=== PATIENT | male | born 2005 | race Caucasian/White ===

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

== ENCOUNTER 2025-04-02 22:00 | Observation (INO) | payer OTHER, SELFPAY ==
[2025-04-02 22:01] VITALS: BP 133/72; PULSE 100; RESP 18; TEMP 36.5; O2SAT 98; BMI 30.2
--- NOTE | 2025-04-02 22:14 | EDS_ITS ---
HPI History of Present Illness Chief Complaint: Abd Pain Narrative Narrative: Chief complaint and HPI: Right lower quadrant abdominal pain. 19-year-old male with no significant past medical history presents for evaluation of right lower quadrant abdominal pain. Onset this morning. He associates his some diarrhea. He denies any fever, chills, shortness of breath, chest pain, nausea, vomiting, dysuria. Denies any penile or testicular pain or swelling. No concern for STI. States he has been eating and drinking well. Review of systems: See HPI Medications: As listed on the chart Allergies: As listed on the chart PFSH: Per chart Vital signs: As listed on the chart. Reviewed. Physical exam: Gen: A&O x3, NAD Head: Normocephalic, atraumatic Eyes: No sclera icterus, conjunctiva clear ENT: Moist mucous membranes Neck: Trachea midline, No JVD CV: RRR, no murmurs, no peripheral edema Resp: Lungs CTA BL, no w/r/c GI: Abd soft, non-distended, tender to palpation in the right lower quadrant, no rebound or rigidity Musc: Full ROM, no deformity Skin: Warm, dry Neuro: Alert, oriented, grossly intact, sensation intact Psych: Cooperative, appropriate mood and affect [facility] Medications ?Medication ?Instructions ?Recorded ?Last Taken ?Type NK 04/18/19 Unknown History Allergy/AdvReac Type Severity Reaction Status Date / Time No Known Allergies Allergy Verified 04/02/25 22:03 Surgical History History of myringotomy Social History Smoking Status: Never smoker alcohol intake: never EXAM Physical Exam Const Vital Signs: 04/02/25 22:01 Temperature 97.7 F L Temperature Source Oral Pulse Rate 100 Respiratory Rate 18 Blood Pressure 133/72 H Blood Pressure Mean 92 Pulse Ox 98 Oxygen Delivery Method Room Air MDM MDM MDM Narrative Medical decision making narrative: 19-year-old male with no significant past medical history presents for evaluation of right lower quadrant abdominal pain. Differential diagnosis includes but is not limited to appendicitis, gastroenteritis, UTI, suspect less likely biliary or pancreatic pathology. Patient offered pain medicine but declined. Laboratory workup ordered including CT abdomen pelvis. CBC without leukocytosis or anemia. CMP and lipase pending. UA negative for UTI. CT abdomen pelvis pending. Patient signed out to night physician Dr. Renteria. He will wait for the results and CT abdomen pelvis findings. Impression: 1. Right lower quadrant nominal pain. Lab Data Labs: Laboratory Results - last 24 hr 04/02/25 04/02/25 22:28 22:35 WBC 10.1 RBC 5.04 Hgb 15.8 Hct 46.2 MCV 91.7 MCH 31.3 MCHC 34.2 RDW Std Deviation 42.3 RDW Coeff of Edwin 12.6 Plt Count 270 MPV 10.2 Immature Gran % (Auto) 0.500 Neut % (Auto) 66.4 Lymph % (Auto) 22.6 [place] % (Auto) 8.1 Eos % (Auto) 1.9 Baso % (Auto) 0.5 Absolute Neuts (auto) 6.7 Absolute Lymphs (auto) 2.27 Nucleated RBC % 0 Urine Color Yellow Urine Clarity Clear Urine pH 6.0 Ur Specific [place] 1.020 Urine Protein 15 H Urine Glucose (UA) Normal Urine Ketones Negative Urine Occult Blood Negative Urine Nitrite Negative Urine Bilirubin Negative Urine Urobilinogen 1 H Ur Leukocyte Esterase Negative Discharge Plan Triage Chief Complaint: Abd Pain ED Provider: Jordan Goel Dx/Rx/DC Orders Prescriptions: No Action NK Primary Care Provider: Felipe Monroe Referrals: Felipe Monroe MD [Primary Care Provider] - Print Language: Togolese
--- OUTSIDE RECORDS SUMMARY | 2025-04-02 22:27 | XMS RPT_ITS | CCD ---
Author Organization [facility] Care Team Providers Care Pet Sitter Name Role Phone Dr. Felipe Cortez Primary Care Provider Dr. Felipe Cortez Referring Provider [phone] KEYONNA Wallace Attending Provider Unavailable Primary Care Provider UnavailFelipe Montano Primary Care Unavailable Felipe Cortez Referring Unavailable Maria Elena Cheung Attending Unavailable Maria Elena Cheung Attending Unavailable Felipe Cortez Primary Care Unavailable Felipe Cortez Referring Unavailable BRAULIO DELGADO Attending Unavailable ROSA MOREJON Primary Care Unavailable REFERRED, SELF Referring Unavailable Felipe Kelly Referring Unavailable Felipe Kelly Attending Unavailable Felipe Cortez Primary Care Unavailable Kalyan Renteria Attending Unavailable Felipe Cortez Primary Care Unavailable FELIPE CORTEZ MD Primary Care Physician NENA MORILLO Attending Unavailable FELIPE CORTEZ MD Primary Care Unavailable SANJAY WANG Admitting Unavailable SANJAY WANG Attending Unavailable NENA MORILLO MD Attending Unavailable FELIPE CORTEZ MD Primary Care Unavailable LIONEL CRANE, MERCEDEZ Attending UnavailFELIPE Montano MD Primary Care Unavailable Felipe Cortez MD Primary Care Provider FELIPE CORTEZ Primary Care Unavailable Medications Current Medications Medication Drug Class(es) Dates Sig (Normalized) Sig (Original) 12 hr dextromethorphan hydrobromide 30 mg / guaiFENesin 600 mg extended release oral tablet (1 source) Uncompetitive P-hddlyr-J-aspartat e Receptor Antagonist, Sigma-1 Agonist Start: 10-12-2024 End: 10-19-2024 take 30-600 mg by mouth once as needed dextromethorphan -guaiFENesin (MUCINEX DM) 30-600 MG per extended release tablet Indications: Upper respiratory tract infection, unspecified type Take 1 tablet by mouth 3 times daily as needed for Cough 20 tablet 10/12/2024 10/19/2024 Active Completed/Discontinued Medications Medication Drug Class(es) Dates Sig (Normalized) Sig (Original) albuterol MDI (90 mcg/inh) CFC free inhalation aerosol (1 source) Start: 04-30-2020 End: 06-29-2020 take 2 puff(s) by inhalation every four hours albuterol MDI (90 mcg/inh) CFC free inhalation aerosol 2 puff(s), Inhalation, q4h, ok to fill generic equivalent rescue inhaler, # 1 EA, 1 Refill(s), Pharmacy: [facility], 180.3, cm, 04/30/20 16:03:00 EDT, Height, kg, 04/30/20 16:03:00 EDT, Dosing Weight Start Date: 04/30/20 Stop Date: 06/29/20 Status: Ordered Problems Active Problems Problem Classification Problem Date Documented Da te Episodic/Chronic Asthma (1 source) Asthma 03-28-2019 Chronic Fracture of lower limb (2 sources) Nondisplaced fracture of proximal phalanx of right great toe, subsequent encounter for fracture with routine healing; Translations: [Nondisp fx of prox phalanx of r great toe, 7thD] Onset: 05-08-2022 Episodic Other connective tissue disease (2 sources) Pain in right foot; Translations: [Pain in right foot] Onset: 05-08-2022 Episodic Other upper respiratory disease (1 source) Seasonal allergy 04-30-2020 Chronic Other upper respiratory infections (2 sources) Upper respiratory infection; Translations: [Acute upper respiratory infection, unspecified] Onset: 10-12-2024 10-12-2024 Episodic Skull and face fractures (1 source) Fracture of nasal bones, initial encounter for closed fracture; Translations: [Closed fracture of nasal bone, initial encounter] Onset: 02-22-2024 Episodic Sprains and strains (3 sources) Sprain of ankle; Translations: [Sprain of unspecified ligament of right ankle, initial encounter] 04-18-2019 Episodic Superficial injury; contusion (8 sources) Contusion of foot; Translations: [Contusion of right foot, initial encounter] Episodic Past or Other Problems Problem Classification Problem Date Documented Da te Episodic/Chronic Open wounds of head; neck; and trunk (3 sources) Facial laceration ; Translations: [Laceration without foreign body of other part of head, initial encounter] Onset: 12-18-2022 12-14-2022 Episodic Results Test Name Value Interpretation Reference Range Facility FLU A + B ESUCon 10-12-2024 FLU A ESUC Negative Normal NEGATIVE [facility] Comment on above: Performed By: #### U FLUS #### [address] [address] FLU B ESUC Negative Normal NEGATIVE [facility] Comment on above: Performed By: #### U FLUS #### [address] [address] Rapid influenza A/B antigens on 10-12-2024 FLUAV Ag Ql (Unsp spec) Negative NEGATIVE [facility] FLUBV Ag Ql (Unsp spec) Negative NEGATIVE [facility] Comment on above: Performed at [address] [address] [facility] ANES POSTPROC EVALon 024 ANES POSTPROC EVAL HNO ID: [id number] Author: CHRISTIANO JOSEPH DO Service: Anesthesiology Author Type: Anesthesiologist Type: Anesthesia Postprocedure Evaluation Filed: 02/22/2024 09:18 Note Text: POST ANESTHESIA EVALUATION NOTE : 2005 Procedure Summary Date: 02/22/24 Room / Location: [place] [address] / OR Anesthesia Start: 821 Anesthesia Stop: 850 Procedure: CLSD TX OF NASAL BONE FX W/DO W/STBLN (Nose) Diagnosis: Closed fracture of nasal bone, initial encounter (Closed fracture of nasal bone, initial encounter [S02.2XXA]) Surgeons: Sanjay Wang MD Responsible Provider: Christiano Joseph DO Anesthesia Type: general ASA Status: 1 Anesthesia Type: general Airway Type: LMA Last Vitals Vitals Value Taken Time BP 110/52 02/22/24 0915 Temp 36.8 ?C (98.3 ?F) 02/22/24 0849 Pulse 56 02/22/24 0916 Resp 20 02/22/24 0900 SpO2 99 % 02/22/24 0916 Vitals shown include unfiled device data. Post Anesthesia Patient Status Patient Evaluation: PACU. PACU/ICU Patient Condition: stable. Anticipated Disposition: phase 2 then home. Neurological Status: aware and responsive. Pulmonary Status: breathing comfortably on room air Airway Control: returned to baseline unsupported. Cardiovascular Status: stable. Pain Management: clinically adequate Postoperative Hydration: acceptable. Intraoperative Events: no significant anesthesia events Post Operative Nausea/Vomiting Status: no significant post operative nausea or vomiting Recommendation: continue current plan of care. Anesthesia Observations No Documentation SIGNATURE: Christiano Joseph DO PATIENT NAME: Nena Wood DATE: February 22, 2024 TIME: 9:18 AM CSN: [id number] [facility] ANES PRE-OPon 02-22-2024 ANES PRE-OP HNO ID: [id number] Author: CHRISTIANO JOSEPH DO Service: Anesthesiology Author Type: Anesthesiologist Type: Anesthesia Preprocedure Evaluation Filed: 02/22/2024 08:10 Note Text: ANESTHESIOLOGY DAY OF SURGERY NOTE : 2005 Procedure Information Date/Time: 02/22/24 0820 Procedure: CLSD TX OF NASAL BONE FX W/DO W/STBLN (Nose) Location: OR 10 / OR Surgeons: Sanjay Wang MD Estimated body mass index is 30.62 kg/m? as calculated from the following: Height as of this encounter: 180.3 cm (5' 11). Weight as of this encounter: 99.6 kg (219 lb 9.3 oz). Most recent hematocrit and potassium results: No results found for this basename: HCT,HEMATOCRIT,K,POTAS SIUM Relevant Problems No relevant active problems I - PHYSICAL EVALUATION AIRWAY Patient intubated: No. Tracheostomy tube not present Mallampati: I. TM distance: >3 FB. Neck ROM: full ROM without neurological symptoms. Mouth opening: adequate. Short neck: no. Thick neck: no DENTAL Normal dental observations. Dental findings: teeth intact. Additional exam findings: yes. CARDIOVASCULAR Rhythm: regular PULMONARY Breath sounds clear to auscultation. II - ANESTHESIA PLAN ASA Score: 1 Anesthetic Plan: general Airway type: LMA NPO Status: adequate Beta Yohan Monitoring Plan Monitoring plan: standard ASA. Post Procedure Analgesic Plan Postoperative analgesic plan: parenteral or oral opioids and per surgical service. Informed Consent Anesthetic risks, benefits, alternatives, personnel and consent discussed: yes. Patient / Responsible Green Party agrees to proceed: yes Patient / Surrogate agrees to blood products: Yes Significant changes in the patient condition since the History and Physical, not otherwise documented in primary service progress note: no. Vitals Value Taken Time BP 134/57 02/22/24 0709 Pulse 74 02/22/24 07 Resp 18 02/22/24 07 Temp 36.9 ?C (98.4 ?F) 02/22/24 07 SpO2 97 % 02/22/24705 Facility-Administered Medications as of 02/22/2024 Medication Dose Route Frequency - [COMPLETED] lidocaine (PF) 10 mg/mL (1 %) 2 mg injection (XYLOCAINE) 0.2 mL INTRADERMAL PRN - lactated ringers iv infusion 30 mL/hr INTRAVENOUS CONTINUOUS - NaCl 0.9% iv flush bag 20 mL INTRAVENOUS PRN - midazolam (PF) 2 mg injection (VERSED) 2 mg INTRAVENOUS Pre-Op Once No current outpatient medications on file as of 02/22/2024. I have interviewed and examined the patient. I have reviewed the medical record and/or the pre-anesthesia evaluation, pertinent labs, and test results. This contains updated information obtained within 48 hours of Surgery/Procedure. SIGNATURE: Christiano Joseph DO PATIENT NAME: Nena Wood DATE: February 22, 2024 TIME: 8:10 AM CSN: [id number] [facility] HISTORY PHYSICALon HISTORY PHYSICAL HNO ID: [id number] Author: SANJAY WANG MD Service: Otolaryngology Author Type: Physician Type: H&P Filed: 02/22/2024 07:16 Note Text: UPDATED HISTORY AND PHYSICAL EXAMINATION SERVICE DATE: 02/22/2024 SERVICE TIME: 7:16 AM PHYSICAL EXAM MUST BE COMPLETED ON ADMISSION The History and Physical (completed in the past 30 days) has been reviewed and the patient has been examined. The contents accurately reflect the patient's condition with the following additions or revisions since the HANDP was completed. Examination indicates no changes. This HANDP can be found in the scanned documents dated 02/20/24. SIGNATURE: Sanjay Wang MD PATIENT NAME: Nena Wood DATE: February 22, 2024 TIME: 7:16 AM Normal [facility] OPERATIVE NOon 02-22-2024 OPERATIVE NO HNO ID: [id number] Author: SANJAY WANG MD Service: Otolaryngology Author Type: Physician Type: Operative Report Filed: 02/22/2024 14:41 Note Text: [facility] - OPERATIVE REPORT NENA WOOD : 2005 AGE: 18. SEX: M PATIENT TYPE: A HOSP SVC: L[facility]OR[facility] LOCATION: [id number] ATTENDING PHYSICIAN: Sanjay Wang MD CSN NUMBER: [id number] DATE OF SURGERY/PROCEDURE: 02/22/2024 INCISION/PROCEDURE START TIME: 8:34 AM INCISION CLOSE/PROCEDURE END TIME: 8:41 AM PREOPERATIVE DIAGNOSIS: Nasal fracture. POSTOPERATIVE DIAGNOSIS: Nasal fracture. SURGEON: Sanjay Wang MD PERFORMANCE INSTRUCTOR: No Additional Staff SURGERY/PROCEDURE: Closed reduction , nasal fracture. ANESTHESIA: General via laryngeal mask airway. INDICATIONS: This is an 18-year-old male, who was struck in the face by a baseball, sustaining a comminuted nasal fracture with a depressed right nasal bone. This occurred approximately 2 weeks ago. He is brought to the operating room at this time for anticipated closed reduction of the nasal fracture. The procedure has been discussed with the patient preoperatively. He has elected to proceed. DESCRIPTION OF PROCEDURE: The patient was brought to the operating room, placed on the operating room table in the supine position. General anesthesia via laryngeal mask airway was induced without complication. The head of the bed was elevated approximately 30 degrees. The nose was topically decongested using neurosurgical pledgets, saturated with oxymetazoline solution. The patient has a depressed right nasal bone resulting in a leftward deviation of the nasal dorsum. He has a healing, curvilinear laceration approximately 2.5 cm in length on the right midface at the junction of the nose and the cheek. After adequate time for topical nasal decongestion, the nasal bone on the right side was reduced using a nasal bone elevator. The nasal bone was manipulated with both the elevator and with digital manipulation until the bone was in proper alignment and the deformity of the external nose had been corrected. 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 Bleeding from inside the nose was controlled using neurosurgical pledgets, saturated with oxymetazoline solution. The external nose was dressed with Steri-Strips and an Aquaplast cast. The neurosurgical pledgets were removed. No further bleeding was noted from the nose. The patient was turned over to Anesthesia for postsurgical anesthesia recovery. There were no intraoperative complications. ESTIMATED BLOOD LOSS: Less than 2 mL. Sanjay Wang MD CB:[id number] /[id number] Normal [facility] CT MAXILLOFACIAL W/O CONTRAS Ton 02-06-2024 CT MAXILLOFACIAL W/O CONTRAST ORIGINAL EXAMINATION: CT OF THE FACE WITHOUT CONTRAST 02/06/2024 11:31 am TECHNIQUE: CT of the face was performed without the administration of intravenous contrast. Multiplanar reformatted images are provided for review. Automated exposure control, iterative reconstruction, and/or weight based adjustment of the mA/kV was utilized to reduce the radiation dose to as low as reasonably achievable. COMPARISON: None HISTORY: ORDERING SYSTEM PROVIDED HISTORY: Reason for Exam: Nasal bone fx. Ball hit patent in the nose. INJURY FINDINGS: There is some fluid and mucosal thickening within the left maxillary sinus, presumably sinusitis. The maxillary sinus fields and the orbits appear intact. Bilateral nasal bone fractures are present with slight comminution and depression on the right. No other facial bone fracture is visible. The globes are intact. No additional contributory finding. IMPRESSION: Bilateral nasal fractures with mild comminution and depression on the right. Incidental acute and chronic left maxillary sinusitis. Interpreted by: Nick White MD Preliminary Report By: Nick White MD Electronically signed By Nick White MD Dictated Date: 02/06/2024 11:36:12 AM Prelim Date: 02/06/2024 11:37:48 AM Sign Date: 02/06/2024 11:37:48 AM Ordering Provider: NENA MORILLO [facility] ([place]) XR NASAL BONES MINIMUM 3 VIE WSon 02-06-2024 XR NASAL BONES MINIMUM 3 VIEWS ORIGINAL EXAMINATION: THREE XRAY VIEWS OF THE NASAL BONES 02/06/2024 10:54 am COMPARISON: None. 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 pt has small lac on nose and facial swelling. pain FINDINGS: An air-fluid level is seen in the left maxillary sinus. A mildly displaced left nasal bone fracture is seen. IMPRESSION: 1. Mildly displaced left nasal bone fracture. 2. Air-fluid level in the left maxillary sinus, perhaps due to hemorrhage. Sinusitis is within differential. Interpreted by: Sarah Arthur MD Preliminary Report By: Sarah Arthur MD Electronically signed By Sarah Arthur MD Dictated Date: 02/06/2024 10:57:33 AM Prelim Date: 02/06/2024 11:01:03 AM Sign Date: 02/06/2024 11:01:03 AM Ordering Provider: NENA Dempsey [facility] ([place]) Re-Evaluation - PT (1)on Re-Evaluation - PT (1) [facility] [address] [place] [address] [address] [place] [address] / REEVALUATION / MEDICARE RECERTIFICATION PHYSICAL THERAPY MR#: [id number] Acct: [id number] Name: NENA WOOD Rep #: [id number] : 2005 18 From: Hamlet Pimentel PT, ATC Referring Dr.: Dr. Felipe Kelly MD Status:REG RCR Insurance: [facility] SELF PAY INSURANCE Re-Evaluation Intro: Dr. Felipe Kelly MD, It has been my pleasure to treat NENA WOOD over the last 15 visits for L shoulder SLAP 2. Please see the progress note below for an update on the physical therapy plan of care! Subjective Subjective: Pt reports he has made good improvements, still feels weak at this time, and i feel like it pops out some times Objective Objective/Function: L shoulder pain ranges from 1-8/10 L shoulder ROM flex= , abd= , ER= , IR= L shoulder MMT flex= 21, abd= 33, ER= 21, IR= 30 Pt is progressing well but still shows weakness and high pain levels at this time Plan Plan Plan: L shoulder strengthening (rotator cuff), scap stab ex's, UBE, and HEP and Ice for reduction of muscular strain after rx. Balance/Gait/Functiona l tests Balance/Special Test Scores Quick DASH Score: 11.3625 Goals Goals Goal 1:: Pt. to progress L shoulder MMT within at least 10 #F compared to contralateral shoulder (R shoulder) in order to return to prior level of function. Goal Time Frame: 4-6 Weeks Goal Progress: Progressing Goal 2:: Pt. to progress L shoulder ROM within at least 10 degrees of contralateral shoulder (R shoulder) in order to return to prior level of function. Goal Time Frame: 4-6 Weeks Goal Progress: Goal Met Goal 3:: Pt. to decrease P! to at least 50% of current level during activity in order to return to prior level of function. Goal Time Frame: 4-6 Weeks Goal Progress: Progressing Goal 4:: Pt. to be I with HEP. Goal Time Frame: 4-6 Weeks Goal Progress: Progressing Anticipated Interventions Anticipated Interventions Patient/Client Instruction: Educate patient on: Condition and Plan of Care For the Purpose of:: To improve self management Therapeutic Exercise to Include: Strength training, Endurance training, Flexibilty training, Active ROM and Scapular Strength/Stabilization For the Purpose of:: To decrease pain, To increase ROM and To improve muscle performance and motor function Cryotherapy (ice pack, ice massage): Yes For the Purpose of:: To decrease pain Re-Evaluation Ending Re-evaluation ending: Please do not hesitate to contact me at [phone] by phone or if you have questions or concerns regarding this new plan of care! Sincerely, Hamlet Pimentel, PT, ATC 07/08/23 1404 CC: Dr. Felipe Cortez MD; Dr. Felipe Kelly MD [facility] Signed For Medicare only, by signing this I certify the plan of care. Physicians Signature Date Normal [facility] Inital Evaluation (1) - PTon 05-11-2023 Inital Evaluation (1) - PT [facility] [address] [place] [address] / REHABILITATION SERVICES INITIAL EVALUATION MR#: [id number] Acct: [id number] Name: NENA WOOD Rep #: [id number] : 2005 17 From: Hamlet Pimentel PT, ATC Referring Dr.: Dr. Felipe Kelly MD Status: RE G RCR Insurance: [employer] SELF PAY INSURANCE Patient's Visit Information Visit Information Visit Information: NENA WOOD is a 17 year old M referred to Physical Therapy by Dr. Felipe Kelly MD with a diagnosis of L shoulder SLAP 2. Date of Evaluation: 05/11/23 Physical Therapist: Hamlet Pimentel, PT, ATC Visit Plan Frequency: 2-3x /Week Duration: 4-6 Weeks Plan: L shoulder strengthening (rotator cuff), scap stab ex's, UBE, and HEP Subjective Subjective: Pt reports he injured his L shoulder one week ago while playing in a football game. Pt notes his L arm went numb on him and he was in instant pain, not being able to lift his L UE. Pt reports he is feeling a little better now at this time, but notes he is limited from overhead lifting as he is not able to secondary to pain. Pt notes he would like to be able to return to football soon. Pt notes he is a senior and wants to be able to finish the season. Pt reports he is R hand dominant. Pt reports no sleep difficulty at this time. Pt notes he had an xray and MRI which revealed a tear in his posterior labrum. Pt reports no pain while sitting at rest, 9/10 pain at worst (trying to reach behind his back) Pain L shoulder: Pain Intensity (Out of 10): 0 Pain Intensity Range: 9 Objective Objective: Neuro: All dermatomes WNL to light touch. Palpation: TTP in anterior/posterior labrum area ROM: R shoulder flex= 180 deg, abd= 180 deg, ER= 80 deg, IR= WFL; L shoulder flex= 150 deg, abd= 150, ER= 45 deg, IR= P! MMT: R shoulder flex= 26 #F, abd= 47 #F, ER= 22 #F, IR= 28 #F; L shoulder flex= 15 #F, abd= 16 #F, ER= 20 #F, IR= 20 #F Special Tests: Pos. apprehension test, POS reverse apprehension test, Balance/Special Test Scores Quick DASH Score: 29.5450 Goals Goal 1:: Pt. to progress L shoulder MMT within at least 10 #F compared to contralateral shoulder (R shoulder) in order to return to prior level of function. Goal Time Frame: 4-6 Weeks Goal 2:: Pt. to progress L shoulder ROM within at least 10 degrees of contralateral shoulder (R shoulder) in order to return to prior level of function. Goal Time Frame: 4-6 Weeks Goal 3:: Pt. to decrease P! to at least 50% of current level during activity in order to return to prior level of function. Goal Time Frame: 4-6 Weeks Goal 4:: Pt. to be I with HEP. Goal Time Frame: 4-6 Weeks Rehabilitation Potential Physical Therapy Diagnosis: Pt has L shoulder pain, weakness, and limited ROM secondary to L shoulder SLAP Rehabilitation Potential: Good Anticipated Interventions Patient/Client Instruction: Educate patient on: Condition and Plan of Care For the Purpose of:: To improve self management Therapeutic Exercise to Include: Strength training, Endurance training, Flexibilty training, Active ROM and Scapular Strength/Stabilization For the Purpose of:: To decrease pain, To increase ROM and To improve muscle performance and motor function Cryotherapy (ice pack, ice massage): Yes For the Purpose of:: To decrease pain Text: Thank you for the opportunity to evaluate your patient. For Medicare and Medicare HMO plans, please review the plan of care and approve it. It will need to be FAXED BACK to us at [phone] for Medicare purposes. For Medicare only, by signing this I certify the plan of care. Please let me know if there are questions or concerns regarding this plan of care. Physician Signature: Date:__ 05/11/23 3267 CC: Dr. Felipe Cortez MD; Dr. Felipe Kelly MD [facility] Signed Normal [facility] Emergency Department Summary on 12-15-[address] [facility] Medical Records Department [address] [place] [address] Emergency Department Summary 12/14/22 MR#: [id number] Acct: [id number] Name: NENA WOOD Rep #: [id number] : 2005 17 From: Kalyan Renteria DO PCP: Dr. Felipe Cortez MD Status:DEP ER Location: ED HPI History of Present Illness Chief Complaint: Laceration Narrative Narrative: Patient is a 17-year-old male who is otherwise healthy and up-to-date on immunizations. He states he was with his girlfriend this evening playing baseball/softball. He states that she hit the ball and he got struck in the face/chin by it. He reports being dazed but denies any loss of consciousness. He reports that there has been no light sensitivity change in vision headache nausea or vomiting. Girlfriend states he has been acting at his baseline. He denies any history of bleeding disorder or blood thinner use. He states he is concerned that he may need sutures based on the injury and secondary to this comes in for evaluation [facility] Home Medications NK 04/18/19 [History Last Taken Unknown] Allergy/AdvReac Type Severity Reaction Status Date / Time No Known Allergies Allergy Unverified 12/14/22 21:49 Surgical History History of myringotomy Social History Smoking Status: Never smoker alcohol intake: never ROS ROS ED Constitutional Constitutional ED: Denies chills or fever(s) Eyes Eyes: Denies change in vision ENT ENT ED: Reports other Details: Positive chin laceration ; Denies sore throat Cardiovascular Cardiovascular: Denies chest pain Respiratory/Chest Respiratory/Chest: Denies cough or dyspnea Gastrointestinal Gastrointestinal: Denies abdominal pain, diarrhea, nausea or vomiting Genitourinary Genitourinary ED: Denies dysuria Musculoskeletal Musculoskeletal: Denies myalgias or neck pain Integumentary Reports other Details: Positive laceration ; Denies rash Neurologic Neurologic: Denies headache(s), paresthesias or weakness Hematologic/Lymphatic Hematologic/Lymphatic: Denies easy bleeding or easy bruising EXAM Physical Exam Const Vital Signs: 12/14/22 21:47 Temperature 98.3 F Temperature Source Temporal Pulse Rate 90 Respiratory Rate 18 Blood Pressure 135/70 H Blood Pressure Mean 91 Pulse Ox 99 Oxygen Delivery Method Room Air Positive well nourished and well developed General Appearance ED: well developed HEENT HEENT Narrative: No signs of depressed or basilar skull fracture Patient has a somewhat linear/jagged 2-1/2 cm subcutaneous deep laceration to the middle of the left aspect of the chin. There is minimal ooze of blood without foreign body No dental fracture noted No abnormality to the bony structure of the jaw Eyes PERRL and EOMs intact bilaterally Neck supple Neck Narrative: No bony deformity or step-off of the cervical spine no midline pain with palpation Resp normal respiratory effort and clear to auscultation bilaterally Cardio regular rate and regular rhythm Extremity normal to inspection Neuro oriented x3 and CN's II-XII intact bilaterally Sensorium / Orientation: alert Psych mental status grossly normal Skin Skin Narrative: Laceration to the chin as documented above. There is also a surrounding 2 x 2 hematoma present consistent with trauma MDM MDM MDM Narrative Medical decision making narrative: Patient presented to the ER after a direct injury to the face/head. He is awake and alert with no change in mental status no concussion symptoms and he does not have any history of bleeding disorder or blood thinner use. Differential includes facial laceration with contusion as well as concussion versus skull fracture and brain bleed or jaw fracture. As the patient has no signs of depressed or basilar skull fracture has a normal neurologic exam and no signs of bony derangement to the jaw I do not feel there is need for a head or facial CT. the wound was closed as documented below and following this patient is otherwise safe for discharge Patient had the chin wound cleaned with chlorhexidine. It was anesthetized with 6 mils of 2% lidocaine with epinephrine local fashion. The wound was copiously irrigated with normal saline. Then twelve 4-0 Ethilon sutures were placed in simple operative fashion. This brought the wound together good approximation. Patient tolerated procedure well without complication History Record Review Discussion w/independent historian: Patient and Friend Discharge Plan Triage Chief Complaint: Laceration ED Provider: Kalyan Renteria Dx/Rx/DC Orders Clinical Impression: Facial laceration, Traumatic hematoma of face Instructions: ED Laceration: All Closures (more content not included)... Normal [facility] CR Foot Complete 3+ Views [facility] 05-08-2022 CR Foot Complete 3+ Views Right Patient Name: NENA WOOD Diagnostic Radiology ACCESSION EXAM DATE/TIME PROCEDURE ORDERING PROVIDER [id number] 05/08/2022 14:41 EDT CR Foot Complete 3+ [id number] -KAEHLER, MARIA ELENA Views Right CPT code 92416 Reason For Exam (CR Foot Complete 3+ Views Right) PAIN WB RIGHT FOOT AP, LAT, OBLIQUE Report RIGHT FOOT CLINICAL INDICATION: PAIN WB RIGHT FOOT AP, LAT, OBLIQUE AP, lateral, and oblique plain film views of the right foot were obtained. COMPARISON: None. There is an oblique fracture through the shaft and distal articular surface of the great toe proximal phalanx. The fracture appears subacute and is anatomically aligned. Periosteal reaction is present indicating healing. No other healing fractures identified. There is mild pes planus. The bones are normally mineralized with no focal osseous lesions. IMPRESSION: Healing nondisplaced intra-articular fracture of the great toe proximal phalanx. Report Dictated on Final Dictating Physician: MD FLORES THOMAS Signed Date and Time: 05/08/2022 11:03 pm Signed by: MD FLORES THOMAS Transcribed Date and Time: 05/08/2022 11:04 Normal [facility] XR FOOT RIGHT (MIN 3 VIEWS)o n 05-08-2022 Patient Name: NENA WOOD Diagnostic Radiology ACCESSION EXAM DATE/TIME PROCEDURE ORDERING PROVIDER [id number] 05/08/2022 14:41 EDT CR Foot Complete 3+ [id number] -KAEHLER, MARIA ELENA Views Right CPT code 07768 Reason For Exam (CR Foot Complete 3+ Views Right) PAIN WB RIGHT FOOT AP, LAT, OBLIQUE Report RIGHT FOOT CLINICAL INDICATION: PAIN WB RIGHT FOOT AP, LAT, OBLIQUE AP, lateral, and oblique plain film views of the right foot were obtained. COMPARISON: None. There is an oblique fracture through the shaft and distal articular surface of the great toe proximal phalanx. The fracture appears subacute and is anatomically aligned. Periosteal reaction is present indicating healing. No other healing fractures identified. There is mild pes planus. The bones are normally mineralized with no focal osseous lesions. IMPRESSION: Healing nondisplaced intra-articular fracture of the great toe proximal phalanx. Report Dictated on --- Final --- Dictating Physician: MD FLORES THOMAS Signed Date and Time: 05/08/2022 11:03 pm Signed by: MD FLORES THOMAS Transcribed Date and Time: 05/08/2022 11:04 [facility] Nathanael Mendes M D - 05/08/2022 Patient Name: NENA WOOD Diagnostic Radiology ACCESSION EXAM DATE/TIME PROCEDURE ORDERING PROVIDER [id number] 05/08/2022 14:41 EDT CR Foot Complete 3+ [id number] -REID, MARIA ELENA Views Right CPT code 50811 Reason For Exam (CR Foot Complete 3+ Views Right) PAIN WB RIGHT FOOT AP, LAT, OBLIQUE Report RIGHT FOOT CLINICAL INDICATION: PAIN WB RIGHT FOOT AP, LAT, OBLIQUE AP, lateral, and oblique plain film views of the right foot were obtained. COMPARISON: None. There is an oblique fracture through the shaft and distal articular surface of the great toe proximal phalanx. The fracture appears subacute and is anatomically aligned. Periosteal reaction is present indicating healing. No other healing fractures identified. There is mild pes planus. The bones are normally mineralized with no focal osseous lesions. IMPRESSION: Healing nondisplaced intra-articular fracture of the great toe proximal phalanx. Report Dictated on --- Final --- Dictating Physician: MD FLORES THOMAS Signed Date and Time: 05/08/2022 11:03 pm Signed by: MD FLORES THOMAS Transcribed Date and Time: 05/08/2022 11:04 [facility] Work Phone: Radiology Study observation (narrative) [facility] Work Phone: XR FOOT RIGHT (MIN 3 VIEWS)O rdered By: Nathanael Flores on 05-08-2022 [facility] Work Phone: Vital Signs Date Time Vital Sign Value Performing Clinician Edward sarkar 10-12-2024 10:45-0500 Body height 180.3 cm Felipe Cortez MD Work Phone: [facility] 10-12-2024 10:45-0500 Body mass index (BMI) [Ratio] 31.38 kg/m2 Felipe Cortez MD Work Phone: [facility] 10-12-2024 10:45-0500 Body temperature 98.1 [degF] Felipe Cortez MD Work Phone: [facility] 10-12-2024 10:45-0500 Body weight 102.06 kg Felipe Cortez MD Work Phone: [facility] 10-12-2024 10:45-0500 Diastolic blood pressure 93 mm[Hg] Felipe Cortez MD Work Phone: [facility] 10-12-2024 10:45-0500 Heart rate 96 /min Felipe Cortez MD Work Phone: [facility] 10-12-2024 10:45-0500 Respiratory rate 16 /min Felipe Cortez MD Work Phone: [facility] 10-12-2024 10:45-0500 SaO2% (BldA) [Mass fraction] 98 % Felipe Cortez MD Work Phone: [facility] 10-12-2024 10:45-0500 Systolic blood pressure 142 mm[Hg] Felipe Cortez MD Work Phone: [facility] 02-06-2024 11:58-0400 Diastolic Blood Pressure Non-Invasive 68 mm[Hg] NENA MORILLO MD [facility] 02-06-2024 11:58-0400 Heart rate 64 /min NENA MORILLO MD [facility] 02-06-2024 11:58-0400 Respiratory rate 18 /min NENA MORILLO MD [facility] 02-06-2024 11:58-0400 Systolic Blood Pressure Non-Invasive 116 mm[Hg] NENA MORILLO MD [facility] 02-06-2024 09:49-0400 Blood Pressure Cuff Size NENA MORILLO MD [facility] 02-06-2024 09:49-0400 Blood Pressure Location NENA MORILLO MD [facility] 02-06-2024 09:49-0400 Blood Pressure Method NENA MORILLO MD [facility] 02-06-2024 09:49-0400 Body temperature 98.6 [degF] NENA MORILLO MD [facility] 02-06-2024 09:49-0400 Diastolic Blood Pressure Non-Invasive 60 mm[Hg] NENA MORILLO MD [facility] 02-06-2024 09:49-0400 Heart rate 55 /min NENA MORILLO MD [facility] 02-06-2024 09:49-0400 Respiratory rate 18 /min NENA MORILLO MD [facility] 02-06-2024 09:49-0400 Systolic Blood Pressure Non-Invasive 104 mm[Hg] NENA MORILLO MD [facility] 12-14-2022 21:47-0400 Body height 180.34 cm [facility] 12-14-2022 21:47-0400 Body mass index (BMI) [Percentile] Per age and sex 97.2 % [facility] 12-14-2022 21:47-0400 Body mass index (BMI) [Ratio] 30.5 kg/m2 [facility] 12-14-2022 21:47-0400 Body temperature 98.3 [degF] [facility] 12-14-2022 21:47-0400 Body weight 99.3 kg [facility] 12-14-2022 21:47-0400 Diastolic blood pressure 70 mm[Hg] [facility] 12-14-2022 21:47-0400 Heart rate 90 /min [facility] 12-14-2022 21:47-0400 Respiratory rate 18 /min [facility] 12-14-2022 21:47-0400 SaO2% (BldA) [Mass fraction] 99 % [facility] 12-14-2022 21:47-0400 Systolic blood pressure 135 mm[Hg] [facility] 04-14-2022 16:21-0400 Body temperature 98.7 [degF] Dr. Felipe Cortez Work Phone: [facility] Work Phone: 04-14-2022 16:21-0400 Diastolic blood pressure 66 mm[Hg] Dr. Felipe Cortez Work Phone: [facility] Work Phone: 04-14-2022 16:21-0400 Heart rate 73 /min Dr. Felipe Cortez Work Phone: [facility] Work Phone: 04-14-2022 16:21-0400 Respiratory rate 14 /min Dr. Felipe Cortez Work Phone: [facility] Work Phone: 04-14-2022 16:21-0400 SaO2% (BldA) [Mass fraction] 99 % Dr. Felipe Cortez Work Phone: [facility] Work Phone: 04-14-2022 16:21-0400 Systolic blood pressure 108 mm[Hg] Dr. Felipe Cortez Work Phone: [facility] Work Phone: Encounters Encounter Date Encounter Type Care Provider Facility Start: 10-12-2024 End: 10-12-2024 Emergency department patient visit FELIPE CORTEZ [facility] Start: 10-12-2024 End: 10-12-2024 Office outpatient new 30 minutes Felipe Cortez MD Work Phone: [facility] Comment on above: Upper respiratory tr act infection, unspecified type (Primary Dx) Start: 09-13-2024 End: 09-13-2024 ambulatory MERCEDEZ FLOWERS [facility] Facility:A Start: 02-22-2024 End: 02-22-2024 ambulatory SANJAY WANG Facility:[id number] Start: 02-06-2024 End: 02-06-2024 Emergency department patient visit NENA MORILLO MD [place] Start: 08-04-2023 End: 08-04-2023 ambulatory Felipe Kelly Facility:[facility] Start: 08-04-2023 End: 08-04-2023 ambulatory [facility] Work Phone: Start: 08-04-2023 End: 08-04-2023 Discharged Recurring [facility] Work Phone: Start: 05-06-2023 End: 05-06-2023 ambulatory [facility] Danette [facility] Start: 12-14-2022 End: 12-15-2022 Emergency department patient visit [facility] Facility:[facility] Start: 12-14-2022 End: 12-14-2022 Emergency department patient visit [facility] Start: 05-08-2022 ambulatory Maria Elena Louis [facility] Start: 05-08-2022 End: 05-08-2022 Subsequent hospital visit by physician Maria Elena NEWBY Work Phone: [facility] Start: 04-14-2022 End: 04-14-[address] Felipe Cortez Work Phone: [facility] Work Phone: Start: 04-14-2022 End: 04-14-[address] Felipe Cortez Work Phone: [facility] Procedures Date Procedure Procedure Detail Performing Clinician Start: 10-12-2024 Iaadiadoo influenza Dony Roth [facility] Work Phone: Start: 05-08-2022 Radex foot complete minimum 3 views Maria Elena NEWBY Work Phone: Start: 04-14-2022 X-ray of both feet Dr. Felipe Cortez Work Phone: Start: 11-01-2008 Tube (qualifier value) NENA MORILLO MD Comment on above: in ears Plan of Treatment Date Care Activity Detail Author Start: 01-26-2033 DTaP/Tdap/Td vaccine (8 - Td or Tdap) DTaP/Tdap/Td vaccine (8 - Td or Tdap) [facility] Start: 04-23-2024 COVID-19 Vaccine ( season) COVID-19 Vaccine ( season) [facility] Start: 03-23-2024 Influenza vaccination Flu vaccine (# 1) [facility] Start: 2023 Hepatitis C screening Hepatitis C sc reen [facility] Start: 04-23-2022 Influenza vaccination Flu vaccine (# 1) [facility] Start: 2020 HIV screening HIV screen [facility] Start: 2017 Depression Screen Depression Screen [facility] Start: 2012 DTaP/Tdap/Td vaccine (1 - Tdap) DTaP/Tdap/Td vaccine (1 - Tdap) [facility] Start: 2005 COVID-19 Vaccine (#1) COVID-19 Vacci ne (#1) [facility] Patient Education ED Laceration: All Closures [facility] Work Phone: Patient referral [facility] Work Phone: Immunizations Immunization Date Immunization Notes Care Provider Fa lisandro 01-26-2023 tetanus toxoid, redu abdoul diphtheria toxoid, and acellular pertussis vaccine, adsorbed; Translations: [Boostrix (Tdap)] NENA MORILLO MD [facility] 06-11-2021 Human Papillomavirus 9-valent vaccine; Translations: [Gardasil 9] NENA MORILLO MD [facility] 01-09-2021 Human Papillomavirus 9-valent vaccine; Translations: [Gardasil 9] NENA MORILLO MD [facility] 11-19-2020 Human Papillomavirus 9-valent vaccine; Translations: [Gardasil 9] NENA MORILLO MD [facility] 02-17-2017 diphtheria and tetan us toxoids, adsorbed for pediatric use NENA MORILLO MD [facility] 02-17-2017 meningococcal polysaccharide (groups A, C, Y and W-135) diphtheria toxoid conjugate vaccine (MCV4P) NENA MORILLO MD [facility] 02-17-2017 tetanus and diphther ia toxoids, adsorbed, preservative free, for adult use (5 Lf of tetanus toxoid and 2 Lf of diphtheria toxoid) NENA MORILLO MD [facility] 04-02-2011 diphtheria, tetanus toxoids and acellular pertussis vaccine NENA MORILLO MD [facility] 04-02-2011 measles/mumps/rubell a virus vaccine NENA MORILLO MD [facility] 04-02-2011 poliovirus vaccine, inactivated NENA MORILLO MD [facility] 04-02-2011 varicella virus vaccine WILL SHARON MORILLO MD [facility] 06-27-2007 diphtheria, tetanus toxoids and acellular pertussis vaccine NENA MORILLO MD [facility] 06-27-2007 haemophilus influenz ae type b vaccine, PRP-T conjugate NENA MORILLO MD [facility] 06-27-2007 pneumococcal conjuga te vaccine, 13 valent NENA MORILLO MD [facility] 01-24-2007 measles/mumps/rubell a virus vaccine NENA MORILLO MD [facility] 01-24-2007 pneumococcal conjuga te vaccine, 13 valent NENA MORILLO MD [facility] 01-24-2007 varicella virus vaccine WILL SHARON MORILLO MD [facility] 03-31-2006 poliovirus vaccine, inactivated NENA MORILLO MD [facility] 01-20-2006 pneumococcal conjuga te vaccine, 13 valent NENA MORILLO MD [facility] 2005 diphtheria, tetanus toxoids and acellular pertussis vaccine NENA MORILLO MD [facility] 2005 haemophilus influenz ae type b vaccine, PRP-T conjugate NENA MORILLO MD [facility] 2005 hepatitis B vaccine, unspecified formulation NENA MORILLO MD [facility] 2005 poliovirus vaccine, inactivated NENA MORILLO MD [facility] 2005 diphtheria, tetanus toxoids and acellular pertussis vaccine NENA MORILLO MD [facility] 2005 haemophilus influenz ae type b vaccine, PRP-T conjugate NENA MORILLO MD [facility] 2005 hepatitis B vaccine, unspecified formulation NENA MORILLO MD [facility] 2005 pneumococcal conjuga te vaccine, 13 valent NENA MORILLO MD [facility] 2005 poliovirus vaccine, inactivated NENA MORILLO MD [facility] 2005 diphtheria, tetanus toxoids and acellular pertussis vaccine NENA MORILLO MD [facility] 2005 DTaP-hepatitis B and poliovirus vaccine NENA MORILLO MD [facility] 2005 haemophilus influenz ae type b vaccine, PRP-T conjugate NENA MORILLO MD [facility] 2005 hepatitis B vaccine, unspecified formulation NENA MORILLO MD [facility] 2005 poliovirus vaccine, inactivated NENA MORILLO MD [facility] Payers Date Payer Category Payer Self-pay [id number] 2022 Unknown [id number] 2005 Unknown [id number] 2.16. [id number] 2005 Unknown [id number] 2.16.8 [id number] 2005 Unknown [id number] 2.16.8 [id number] 2005 Unknown [id number] 2.16.8 [id number] 2005 Unknown [id number] 2.16. [id number] 1986 Unknown [id number] 2.16. [id number] 1986 Unknown [id number] 2.16. [id number] Unknown [id number] Unknown Unknown [id number] Unknown [id number] 2.16.8 [id number] Unknown [id number] 2.16.8 [id number] Social History Date Type Detail Facility Start: 04-14-2022 End: 12-14-2022 Tobacco smoking status AZIS Unknown if ever smoked [facility] Start: 2005 Sex Assigned At Male [facility] Start: 2005 Sex Assigned At Not on file [facility] Work Phone: Tobacco Tobacco Use: no tobacco or smoke exposure. [facility] Tobacco smoking status No Smokin g Status Entered [facility] Start: 10-12-2024 Tobacco smoking stat us AZIS Never smoked tobacco [facility] Start: 10-12-2024 Tobacco use and exposure User of smokeless tobacco [facility] History of tobacco use Chews Tobacco [facility] Start: 10-12-2024 Alcoholic beverage intake Ex-drinker (finding) [facility] Start: 05-08-2022 History of Social function [facility] Start: 05-08-2022 Tobacco use panel Tapan looney [facility] Start: 10-12-2024 Alcohol Comment Social [facility] Functional Status Date Assessment Result Facility 02-06-2024 Functional Status Independent [facility] sandie [facility] 02-06-2024 Functional Status Ambulation in [place], Ambulation in Room [facility] Mental Status Date Assessment Result Facility 02-06-2024 Mental Status Oriented x 4 [facility] 02-06-2024 Mental Status [facility] Clinical Notes 12-14-2022 to 02-22-2024 Note Date & Type Note Facility 02-22-2024 Note HNO ID: [id number] Author: WILSON FIORE APRN.CRNA Service: Anesthesiology Author Type: Nurse Fur Designer Type: Anesthesia Procedure Notes Filed: 02/22/2024 08:35 Note Text: ANESTHESIOLOGY PROCEDURE NOTE Airway General Information Procedure Start Time/Medication Administration: 02/22/2024 8:29 AM Procedure End Time: 02/22/2024 8:29 AM Patient location during procedure: OR Timeout Performed Pre-procedure: timeout performed Consent Obtained: Yes Patient identity confirmed: arm band, care sales team member, patient and family Staffing Anesthesiologist: Christiano Joseph DO SRNA: Janes Pollock SRNA Performed by: KRISTA Indications and Patient Condition Indications for airway management: anesthesia Preoxygenated: yes anesthesia circuit Patient position: sniffing Method: asleep Cricoid Pressure: No Manual In-Line Stabilization: No Difficult Mask: No Final Airway Details Final airway type: supraglottic airway Number of attempts at approach: 1 Final Supraglottic Airway: Size 4 Seal Adequate: yes Failed airway: no Unrecognized esophageal intubation: no Airway not difficult SIGNATURE: Wilson Fiore APRN.EEG TECHNOLOGIST PATIENT NAME: Nena Wood DATE: February 22, 2024 TIME: 8:34 AM CSN: [id number] [facility] 02-21-2024 Note HNO ID: [id number] Author: PATRICIA, LEANNE, RN Service: Nursing Author Type: Registered Nurse Type: Progress Notes Filed: 02/21/2024 14:01 Note Text: PRE-PROCEDURE INSTRUCTIONS TO PREPARE FOR YOUR PROCEDURE: Your arrival time for your procedure is 0645. Do NOT eat any solid foods after MIDNIGHT the night prior to your procedure - this includes gum or mints. You can drink clear liquids* up until 0445, which is 2 hours before your arrival time. *Clear liquids = water, carbohydrate drink (sports drink that is clear or yellow in color), Ensure Pre-Surgery (given by MEIR or your ), fruit juice without pulp (apple/cranberry), clear tea, black coffee (no cream). NO CARBONATED BEVERAGES AND NO ALCOHOL. Shower the morning of the procedure, put on clean clothes, and have clean sheets for your bed to help prevent infection after your procedure. Leave all valuables such as jewelry including rings, piercings, wallets, and purses at home. Wear comfortable, loose-fitting clothing. If you wear glasses or contacts, please bring a case. SPECIAL INSTRUCTIONS: If instructed, bring your first voided urine specimen with you. If you were provided skin preparation to use prior to your procedure, complete this as directed. If you were provided Ensure Pre-Surgery drink, you need to drink this at na. This should be consumed quickly (in less than 5 minutes, rather than sipped over time) If a bowel preparation has been ordered by your physician, it is very important to follow the bowel prep instructions or your procedure may need to be rescheduled. If you use crutches or a walker, bring them with you. If you have a home CPAP/BIPAP machine, bring it with you. If you were instructed to complete a fleets enema or bowel prep, complete as directed. Bring copy of Living Will/Power of Pyrotechnics Press Tender. Do not smoke or chew. If you use tobacco, quit or at least cut down before surgery. Do not smoke or chew after midnight the day before your surgery. This effects bleeding, infection, healing, and so much more. Do not take any Diet or Herbal Supplements 2 weeks prior to your surgery date. Please notify your physician if there is any change in your physical condition such as a cold, cough, fever, sore throat, or skin irritation near the surgical site. Visitors under the age of 14 are restricted in the Surgery Center. UPON ARRIVAL: Access to [facility] is located on [address] Leaflet [employer] Newsp[employer] Delive[employer] parking is available for your convenience from 5am-5pm- there is a $5.00 charge for this service. Take the elevators directly inside the entrance to the 1st Floor Surgery Lobby. Sign in at the podium located to the left when you get off the elevators. A payment may be expected at the time of service. One visitor may come back to the preoperative area with you. The preoperative staff will be reviewing your medical history, please let them know if you prefer not to have a visitor with you during this time. Once you are ready for your procedure, two visitors at a time are permitted in your preprocedure room. MEDICATION INSTRUCTIONS PRIOR TO SURGERY Please read below carefully for your personalized instructions. Medications: If you are on blood thinner or anticoagulants including aspirin, please confirm with your surgical team on when to stop these medications. Unless instructed differently by your surgical team, stay on all of your medications until your surgery. No outpatient medications have been marked as taking for the 02/22/24 encounter (Hospital Encounter). If you take any medications for erectile dysfunction-Cialis (Tadalafil), Levitra, Staxyn (Vardenafil) Viagra (Sildenenafil please do not take these for 48 hours before surgery. If you have any medication changes between receiving these instructions and your surgery date, please provide this updated information with the nurse who calls you the week day prior to your surgical procedure so we can update your list and provide you with updated instructions for the morning of your procedure. [facility] 02-18-2024 Note HNO ID: [id number] Author: SEULLEN SANDERS APRN.CNP Service: Anesthesiology Author Type: Nurse Practitioner Type: Progress Notes Filed: 02/18/2024 09:59 Note Text: Summary: dos meds MEDICATION INSTRUCTIONS PRIOR TO SURGERY Please read below carefully for your personalized instructions. Medications: If you are on blood thinner or anticoagulants including aspirin, please confirm with your surgical team on when to stop these medications. Unless instructed differently by your surgical team, stay on all of your medications until your surgery. No outpatient medications have been marked as taking for the 02/22/24 encounter (Hospital Encounter). If you take any medications for erectile dysfunction-Cialis (Tadalafil), Levitra, Staxyn (Vardenafil) Viagra (Sildenenafil please do not take these for 48 hours before surgery. If you have any medication changes between receiving these instructions and your surgery date, please provide this updated information with the nurse who calls you the week day prior to your surgical procedure so we can update your list and provide you with updated instructions for the morning of your procedure. [facility] 02-06-2024 Hospital Discharge instructions Patient Education 02/06/2024 11:48:50 Laceration, Nose, with Fracture: Suture or Tape Nose Laceration with Fracture: Suture or Tape You have a cut and broken nose. The cut may bleed. And, your broken nose may cause pain, swelling, and nasal stuffiness. Your nose may bleed or leak a clear fluid. The break may be a minor crack or a major break with the parts pushed out of place. By the next day, you may have bruising around the eyes from a broken nose. The cut may be closed so it heals faster. A deep cut often requires stitches. Minor cuts may be closed with surgical tape or skin glue. If your nose has a minor break, it will likely heal with no additional treatment. If your break changes the shape of the nose, you will need straightening of the nasal bones (reduction). It is often best to wait until swelling has gone down to reduce a fracture. However, certain fractures may need to be straightened sooner. Your healthcare provider will give you more information. Depending on the cause of the injury and your immunization status, you may need a tetanus shot. Home care Your healthcare provider may prescribe an antibiotic. This is to help prevent infection. Follow all instructions for taking this medicine. Take the medicine every day until it is gone or you are told to stop. You should not have any left over. The healthcare provider may prescribe medicines for pain. Follow instructions for taking them. Follow the healthcare provider s instructions on how to care for the cut: oWash your hands with soap and warm water before and after caring for the cut. This helps prevent infection. oIf a bandage was applied and it becomes wet or dirty, replace it. Otherwise, leave it in place for the first 24 hours, then change it once a day or as directed. oIf stitches were used, clean the wound daily: After removing the bandage, wash the area with soap and water. Use a wet cotton swab to loosen and remove any blood or crust that forms. After cleaning, pat the wound dry. Reapply a fresh bandage. oYou may remove the bandage to shower as usual after the first 24 hours, but do not soak the area in water (no swimming) until the stitches are removed. oIf surgical tape was used, keep the area clean and dry. If it becomes wet, blot it dry with a towel. Most facial skin wounds heal without problems. However, an infection sometimes occurs despite proper treatment. Therefore, watch for the signs of infection listed below. Apply an ice pack (ice cubes in a plastic bag, wrapped in a towel) to help relieve pain and swelling. Place it gently on the nose for 20 minutes every 1 to 2 hours the first day. Continue with ice packs 3 to 4 times a day for the next 2 days, then as needed. Don't drink alcohol or hot liquids for the next 2 days. Alcohol or hot liquids in your mouth can dilate blood vessels in your nose and cause bleeding. Don't blow your nose for the first 2 days. Then, do so gently so you don't cause bleeding. Don't play contact sports in the next 6 weeks unless you can protect your nose from re-injury. Special custom-fitted plastic facemasks are available for this purpose. Follow-up care Follow up with your healthcare provider as advised. Be sure to return to have stitches removed as directed. Ask your provider how long stitches should remain in place. If surgical tape closures were used, you may remove them yourself when your provider recommends if they have not fallen off on their own. Skin glue will also fall off on its own, usually in 5 to 10 days. If your nose appears crooked or if you cannot breathe through both nostrils after the swelling goes down, contact the referral doctor for an appointment to be seen within 7 days of injury. When to seek medical advice Call your healthcare provider right away if any of these occur: Stitches come apart or fall out, or if surgical tape closures fall off before 5 days Bleeding from the nose that is not controlled by pinching the nostrils together for 10 minutes Signs of infection, including increasing swelling, pain, or redness around the wound, or pus draining from the wound Fever of 100.4 F (38 C) or higher, or as directed by your healthcare provider Inability to breathe from both sides of the nose after swelling goes down Sinus pain Repeated vomiting Changes in vision Leaking of clear fluid from your nose Call 911 Call 911 for any of the following: Trouble breathing or shortness of breath Severe or worsening headache or dizziness Unusual drowsiness Confusion or change in behavior or speech Seizure [id number] [employer]. [address] [place] [address]. All rights reserved. This information is not intended as a substitute for professional medical care. Always follow your healthcare professional's instructions. 02/06/2024 11:48:38 Laceration, Face: Suture or Tape Face Laceration: Stitches or Tape A laceration is a cut through the skin. This will require stitches if it is deep. Minor cuts may be treated with surgical tape. Home care Your healthcare provider may prescribe an antibiotic. This is to help prevent infection. Follow all instructions for taking this medicine. Take the medicine every day until it is gone or you are told to stop. You should not have any left over. The healthcare provider may prescribe medicines for pain. Follow instructions for taking them. Follow the healthcare provider s instructions on how to care for the cut. Wash your hands with soap and warm water before and after caring for the cut. This helps prevent infection. If a bandage was applied and it becomes wet or dirty, replace it. Otherwise, leave it in place for the first 24 hours, then change it once a day or as directed. If stitches were used, clean the wound daily: oAfter removing the bandage, wash the area with soap and water. Use a wet cotton swab to loosen and remove any blood or crust that forms. oAfter cleaning, keep the wound clean and dry. Talk with your healthcare provider before putting any antibiotic ointment on the wound. Reapply a fresh bandage. oYou may remove the bandage to shower as usual after the first 24 hours, but don't soak the area in water (no swimming) until the sutures are removed. If surgical tape was used, keep the area clean and dry. If it becomes wet, blot it dry with a towel. Most facial skin wounds heal without problems. But an infection sometimes occurs despite proper treatment. Watch for the signs of infection listed below. Follow-up care Follow up with your healthcare provider as advised. Be sure to return for removal of the stitches as directed. Ask your provider how long stitches should remain in place. If surgical tape closures were used, you may remove them yourself when your provider recommends if they have not fallen off on their own. When to seek medical advice Call your healthcare provider right away if any of these occur: Wound bleeding not controlled by direct pressure Signs of infection, including increasing pain in the wound, increasing wound redness or swelling, or pus or bad odor coming from the wound Fever of 100.4 F (38 C) or higher, or as directed by your healthcare provider Stitches come apart or fall out or surgical tape falls off before 5 days Wound edges reopen Wound changes colors Numbness around the wound [id number] [employer]. [address] [place] [address]. All rights reserved. This information is not intended as a substitute for professional medical care. Always follow your healthcare professional's instructions. Follow Up Care 02/06/2024 09:47:54 With:VIVIANA RAMIREZ DO Address: [address] [place] [address]- [phone] When:3-5 days With:FELIPE CORTEZ MD Address: [address] [place] [address]- When:2-4 days [facility] 02-06-2024 Note Discharge Instructions Thank you for allowing [facility] to assist you with your healthcare needs. The following is important discharge information regarding your hospital visit. What to Do Next Instructions from Your Care Team No qualifying data available. Post Acute Orders No qualifying data available. You Need to Schedule the Following Appointments Follow Up with VIVIANA RAMIREZ DO When:Within 3-5 days Where:[address] [place] [address] [phone] Follow Up with FELIPE CORTEZ MD When:Within 2-4 days Where:[address] [facility] [place] [address]- Allergies NKA Medications Please ask your primary doctor or pharmacist before taking any other medication not listed, including over the counter drugs, herbal medications, vitamins and or supplements as they may interact with your home medications. What How Much When Instructions Last Dose Unchanged albuterol (albuterol MDI (90 mcg/ inh) CFC free inhalation aerosol) 2 puff(s) by inhalation Every 4 hours Duration: 30 Days ok to fill generic equivalent rescue inhaler Please take this list to your next doctor s visit. Bring all medications you take, including over the counter medications, herbals and other supplements with you to your doctor s visit. Patients and families are reminded to discard old lists and to update any records with all medication providers or retail pharmacies. Education Materials Nose Laceration with Fracture: Suture or Tape You have a cut and broken nose. The cut may bleed. And, your broken nose may cause pain, swelling, and nasal stuffiness. Your nose may bleed or leak a clear fluid. The break may be a minor crack or a major break with the parts pushed out of place. By the next day, you may have bruising around the eyes from a broken nose. The cut may be closed so it heals faster. A deep cut often requires stitches. Minor cuts may be closed with surgical tape or skin glue. If your nose has a minor break, it will likely heal with no additional treatment. If your break changes the shape of the nose, you will need straightening of the nasal bones (reduction). It is often best to wait until swelling has gone down to reduce a fracture. However, certain fractures may need to be straightened sooner. Your healthcare provider will give you more information. Depending on the cause of the injury and your immunization status, you may need a tetanus shot. Home care Your healthcare provider may prescribe an antibiotic. This is to help prevent infection. Follow all instructions for taking this medicine. Take the medicine every day until it is gone or you are told to stop. You should not have any left over. The healthcare provider may prescribe medicines for pain. Follow instructions for taking them. Follow the healthcare provider s instructions on how to care for the cut: oWash your hands with soap and warm water before and after caring for the cut. This helps prevent infection. oIf a bandage was applied and it becomes wet or dirty, replace it. Otherwise, leave it in place for the first 24 hours, then change it once a day or as directed. oIf stitches were used, clean the wound daily: After removing the bandage, wash the area with soap and water. Use a wet cotton swab to loosen and remove any blood or crust that forms. After cleaning, pat the wound dry. Reapply a fresh bandage. oYou may remove the bandage to shower as usual after the first 24 hours, but do not soak the area in water (no swimming) until the stitches are removed. oIf surgical tape was used, keep the area clean and dry. If it becomes wet, blot it dry with a towel. Most facial skin wounds heal without problems. However, an infection sometimes occurs despite proper treatment. Therefore, watch for the signs of infection listed below. Apply an ice pack (ice cubes in a plastic bag, wrapped in a towel) to help relieve pain and swelling. Place it gently on the nose for 20 minutes every 1 to 2 hours the first day. Continue with ice packs 3 to 4 times a day for the next 2 days, then as needed. Don't drink alcohol or hot liquids for the next 2 days. Alcohol or hot liquids in your mouth can dilate blood vessels in your nose and cause bleeding. Don't blow your nose for the first 2 days. Then, do so gently so you don't cause bleeding. Don't play contact sports in the next 6 weeks unless you can protect your nose from re-injury. Special custom-fitted plastic facemasks are available for this purpose. Follow-up care Follow up with your healthcare provider as advised. Be sure to return to have stitches removed as directed. Ask your provider how long stitches should remain in place. If surgical tape closures were used, you may remove them yourself when your provider recommends if they have not fallen off on their own. Skin glue will also fall off on its own, usually in 5 to 10 days. If your nose appears crooked or if you cannot breathe through both nostrils after the swelling goes down, contact the referral doctor for an appointment to be seen within 7 days of injury. When to seek medical advice Call your healthcare provider right away if any of these occur: Stitches come apart or fall out, or if surgical tape closures fall off before 5 days Bleeding from the nose that is not controlled by pinching the nostrils together for 10 minutes Signs of infection, including increasing swelling, pain, or redness around the wound, or pus draining from the wound Fever of 100.4 F (38 C) or higher, or as directed by your healthcare provider Inability to breathe from both sides of the nose after swelling goes down Sinus pain Repeated vomiting Changes in vision Leaking of clear fluid from your nose Call 911 Call 911 for any of the following: Trouble breathing or shortness of breath Severe or worsening headache or dizziness Unusual drowsiness Confusion or change in behavior or speech Seizure [id number] [employer]. [address] [place] [address]. All rights reserved. This information is not intended as a substitute for professional medical care. Always follow your healthcare professional's instructions. Face Laceration: Stitches or Tape A laceration is a cut through the skin. This will require stitches if it is deep. Minor cuts may be treated with surgical tape. Home care Your healthcare provider may prescribe an antibiotic. This is to help prevent infection. Follow all instructions for taking this medicine. Take the medicine every day until it is gone or you are told to stop. You should not have any left over. The healthcare provider may prescribe medicines for pain. Follow instructions for taking them. Follow the healthcare provider s instructions on how to care for the cut. Wash your hands with soap and warm water before and after caring for the cut. This helps prevent infection. If a bandage was applied and it becomes wet or dirty, replace it. Otherwise, leave it in place for the first 24 hours, then change it once a day or as directed. If stitches were used, clean the wound daily: oAfter removing the bandage, wash the area with soap and water. Use a wet cotton swab to loosen and remove any blood or crust that forms. oAfter cleaning, keep the wound clean and dry. Talk with your healthcare provider before putting any antibiotic ointment on the wound. Reapply a fresh bandage. oYou may remove the bandage to shower as usual after the first 24 hours, but don't soak the area in water (no swimming) until the sutures are removed. If surgical tape was used, keep the area clean and dry. If it becomes wet, blot it dry with a towel. Most facial skin wounds heal without problems. But an infection sometimes occurs despite proper treatment. Watch for the signs of infection listed below. Follow-up care Follow up with your healthcare provider as advised. Be sure to return for removal of the stitches as directed. Ask your provider how long stitches should remain in place. If surgical tape closures were used, you may remove them yourself when your provider recommends if they have not fallen off on their own. When to seek medical advice Call your healthcare provider right away if any of these occur: Wound bleeding not controlled by direct pressure Signs of infection, including increasing pain in the wound, increasing wound redness or swelling, or pus or bad odor coming from the wound Fever of 100.4 F (38 C) or higher, or as directed by your healthcare provider Stitches come apart or fall out or surgical tape falls off before 5 days Wound edges reopen Wound changes colors Numbness around the wound [id number] [employer]. [address] [place] [address]. All rights reserved. This information is not intended as a substitute for professional medical care. Always follow your healthcare professional's instructions. Additional Information VACCINATE! IT SAVES LIVES! Members of the community who have not yet received the COVID-19 vaccine and would like to receive it can visit one of [facility] vaccine clinics. There are many vaccine clinic locations within the [facility]. For locations and available times, please visit [email or web address] [email or web address] It is important to note that some COVID mobile vaccine clinics are held outdoors and may be canceled in rainy or stormy conditions. To learn more about pediatric vaccinations (ages 5-11), we invite you to visit the [facility] webpage. [email or web address]/p [email or web address]-Xrmer-Eummxvurafm-Freq oqpkuh-Dqhfe-[email or web address].[email or web address] To learn more about the COVID-19 vaccine, we invite you to visit the CDC website for a list of frequently asked questions. https://www.cdc.gov/coronavirus/ 2019-ncov/vaccines/faq.html [facility] Patient Portal Access Instructions: Stay connected with your healthcare team and access your personal medical information anytime with the [facility] Patient Portal. If you would like a full copy of your medical records please contact the [facility] Medical Records Department Wednesday through Wednesday between 8a.m. and 4:30p.m. Please follow the directions below to access the portal: 1.Access the email account you provided upon registration to the [facility].2.Look for an invitation email from [facility].3.Open the email and access the invitation link: Accept Invitation to [facility].Fill in the required james to create your account. Sign into www.[employer] with your username and password that you created in the above steps to stay up to date. You can then view a summary of results, a summary of your visits, and the ability to download your summaries to your computer or send the information securely to a physician. Remember that your healthcare information is confidential, so carefully consider who you will allow to register on the [facility] Patient Portal for access to your information. You can also access the [facility] Patient Portal on the [employer] jose carlos. Simply click on Health Records under Health Data and then click on the [email or web address] logo. HOW TO SAFELY DISPOSE OF PRESCRIPTION MEDICATIONS Please use one of the following methods to safely dispose of your unused medications. 1.Use a drug disposal kit: the drug disposal pouch allows you to safely discard your old and unused drugs. Ask your nurse to give you one when you are discharged.2.Visit a local take-back location: Many local pharmacies and police departments have programs that collect old and unwanted prescription drugs. Call your local pharmacy or go to http://PT PAL.SocialOptimizr/8E7Uq0i to find one close to you.3.Make use of household items: Use cat litter or old coffee grounds to dispose medications if other options are not available. Mix your drugs with these household products, seal them in an airtight container and throw it into the garbage. Call [facility]: [phone] to be sure your drugs can be disposed of in this way. Some medicines may require a different approach.4.Never flush your medications down the toilet. IF YOU HAVE BEEN PRESCRIBED AN OPIOIDS FOR PAIN If you have been prescribed an opioid (such as hydrocodone, oxycodone or morphine), it is critical to understand the possible side effects and risks of opioid pain medications. Even when taken as directed, opioids can have several side effects including: Tolerance, meaning you might need to take more of a medication for the same pain relief. Nausea, vomiting and/or constipation. Sleepiness, dizziness, dry mouth, confusion, depression or itching. Physical dependence, meaning you have withdrawal symptoms when a medication is stopped ? this can develop within a few days. KNOW YOUR RESPONSIBILITIES It is important to know exactly how much and how often to take the opioid pain medications you are prescribed. Never take opioids in higher amounts or more often than prescribed. Do not combine opioids with alcohol or other drugs that cause drowsiness, such as benzodiazepines, also known as benzos, including diazepam and alprazolam, muscle relaxants or sleep aids. Never sell or share prescription opioids. This is illegal. Store opioids in a secure place and out of reach of others (including children, family, friends and visitors). The last page(s) of this document has been signed and retained as a CHART COPY Signatures Patient Education Materials Laceration, Nose, with Fracture: Suture or Tape Laceration, Face: Suture or Tape Medication Leaflets My discharge plan and instructions have been reviewed and explained to me and I,NENA WOOD understand my current condition and have read and understand these discharge instructions. I have received a written copy of the plan/instructions. If I have questions, I am aware that I should contact my doctor. Patient/Public Health Administrator Signature: Date/Time: Relationship to Patient: Witness Name/Signature: Date/Time: [facility] 02-06-2024 Note ORIGINAL EXAMINATION: CT OF THE FACE WITHOUT CONTRAST 02/06/2024 11:31 am TECHNIQUE: CT of the face was performed without the administration of intravenous contrast. Multiplanar reformatted images are provided for review. Automated exposure control, iterative reconstruction, and/or weight based adjustment of the mA/kV was utilized to reduce the radiation dose to as low as reasonably achievable. COMPARISON: None HISTORY: ORDERING SYSTEM PROVIDED HISTORY: Reason for Exam: Nasal bone fx. Ball hit patent in the nose. INJURY FINDINGS: There is some fluid and mucosal thickening within the left maxillary sinus, presumably sinusitis. The maxillary sinus fields and the orbits appear intact. Bilateral nasal bone fractures are present with slight comminution and depression on the right. No other facial bone fracture is visible. The globes are intact. No additional contributory finding. IMPRESSION: Bilateral nasal fractures with mild comminution and depression on the right. Incidental acute and chronic left maxillary sinusitis. Interpreted by: Nick White MD Preliminary Report By: Nick White MD Electronically signed By Nick White MD Dictated Date: 02/06/2024 11:36:12 AM Prelim Date: 02/06/2024 11:37:48 AM Sign Date: 02/06/2024 11:37:48 AM Ordering Provider: NENA MORILLO [facility] 02-06-2024 Note ORIGINAL EXAMINATION: THREE XRAY VIEWS OF THE NASAL BONES 02/06/2024 10:54 am COMPARISON: None. 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 pt has small lac on nose and facial swelling. pain FINDINGS: An air-fluid level is seen in the left maxillary sinus. A mildly displaced left nasal bone fracture is seen. IMPRESSION: 1. Mildly displaced left nasal bone fracture. 2. Air-fluid level in the left maxillary sinus, perhaps due to hemorrhage. Sinusitis is within differential. Interpreted by: Sarah Arthur MD Preliminary Report By: Sarah Arthur MD Electronically signed By Sarah Arthur MD Dictated Date: 02/06/2024 10:57:33 AM Prelim Date: 02/06/2024 11:01:03 AM Sign Date: 02/06/2024 11:01:03 AM Ordering Provider: NENA MORILLO [facility] 12-14-2022 Hospital Discharge instructions Additional Instructions Please return to the ER or see your family doctor in 5 to 7 days for suture removal. If you have any further concerns or concerns that the area is becoming infected please return for repeat evaluation [facility] Work Phone: Evaluation + Plan note No data available for this section [facility] Evaluation note Diagnosis Onset Date Contusion of right foot including toes acute [facility] Work Phone: Evaluation noteNo assessment information available [facility] Work Phone: Evaluation note* Diagnosis Upper respiratory tract infection, unspecified type- [facility] Attachments The following attachments cannot be sent through Care Everywhere. 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 RX HERE Summary Purpose Family History No Family History Records FoundNo Family History Records FoundNo Family History Records Found No data available for this section No Family History Records FoundNo Family History Records FoundNo Family History Records FoundNo Family History Records FoundNo Family History Records Found Advance Directives No Advanced Directives Records FoundNo Advanced Directives Records FoundNo Advanced Directives Records FoundNo Advanced Directives Records FoundNo Advanced Directives Records FoundNo Advanced Directives Records FoundNo Advanced Directives Records FoundNo Advanced Directives Records Found Additional Source Comments Goals (unrecognized section and content) Goals may be documented in a n alternate sectionGoals may be documented in an alternate sectionGoals may be documented in an alternate section No data available for this section (unrecognized sect ion and content) No Status Records FoundNo Status Records FoundNo Status Records FoundNo Status Records FoundNo Status Records FoundNo Status Records FoundNo Status Records FoundNo Status Records Found INFORMATION SOURCE (unrecogn ized section and content) DATE CREATED AUTHOR 05/22/2022 [facility] DATE CREATED AUTHOR AUTHOR'S ORGANIZ ATION 05/07/2023 [facility] DATE CREATED AUTHOR AUTHOR'S ORGANIZ ATION 11/04/2023 [facility] DATE CREATED AUTHOR AUTHOR'S ORGANIZ ATION 02/17/2024 [facility] DATE CREATED AUTHOR AUTHOR'S ORGANIZ ATION 02/24/2024 [facility] DATE CREATED AUTHOR AUTHOR'S ORGANIZ ATION 05/07/2024 [facility] DATE CREATED AUTHOR AUTHOR'S ORGANIZ ATION 10/06/[address] [facility] DATE CREATED AUTHOR AUTHOR'S ORGANIZ ATION 10/14/2024 [facility] Care Teams (unrecognized sec tion and content) Team Status: Active Member Role Status Dates Dr. Felipe Cortez MD Primary Care Provider Active Team Status: Inactive Member Role Status Dates Dr. Felipe Cortez MD Primary Care Provider Active Dr. Kalyan Renteria DO Emergency Provider Active Team Status: Inactive Member Role Status Dates Dr. Felipe Cortez MD Primary Care Provider Active Dr. Felipe Kelly MD Attending Provider, Referring P wayne Active Pet Sitter Relationship Specialty Start Date End Date Felipe Cortez MD [address] [place] [address] PCP - General Family Medicine 04/17/22 Reason for Visit (unrecogniz ed section and content) Reason Comments Cough Vomiting Induced from Coughin g Nasal Congestion Pharyngitis Ordered Prescriptions (unrec ognized section and content) Prescription Sig Dispensed Refills Start Date End Da te dextromethorphan-guaiFENe sin (MUCINEX DM) 30-600 MG per extended release tabletIndications:Upper respiratory tract infection, unspecified type Take 1 tablet by mouth 3 times daily as needed for Cough 20 tablet 10/12/2024 10/19/2024 FOR RECORDS PERTAINING TO PATIENTS WHO ARE OR HAVE BEEN ENROLLED IN A CHEMICAL DEPENDENCY/SUBSTANCEABUSE PROGRAM, SOME INFORMATION MAY BE OMITTED. This clinical summary was aggregated from multiple sources. Caution should be exercised in using it in the provision of clinical care. This summary normalizes information from multiple sources, and as a consequence, information in this document may materially change the coding, format and clinical context of patient data. In addition, data may be omitted in some cases. CLINICAL DECISIONS SHOULD BE BASED ON THE PRIMARY CLINICAL RECORDS. [facility]. provides no warranty or guarantee of the accuracy or completeness of information in this document.
[2025-04-02 22:41] LABS: Mucous, Urine 0 SEEN /hpf (<or=2+); Red Blood Cells-Urine 0 SEEN /hpf (0-5); Squamous Epithelial Cells - UA 0 SEEN /hpf (0-5)
[2025-04-02 22:42] LABS: Hematocrit 46.2 % (40-54); Hemoglobin 15.8 g/dL (13.0-16.5); Immature Granulocytes Count 0.050 X10^3/uL (0.0-0.0); Mean Corp Hgb Conc 34.2 g/dL (32-36); Mean Corpuscular Volume 91.7 fL (80-94); Mean Platelet Vol. 10.2 fl (6.2-12.0); NRBC Flagged by Analyzer 0 % (0-5); Platelet Count 270 K/mm3 (150-450); RBC Distribution Width CV 12.6 % (11.6-14.6); RBC Distribution Width SD 42.3 fl (35.1-43.9); Red Blood Count 5.04 M/mm3 (4.6-6.2); White Blood Count 10.1 K/mm3 (4.4-11.0)
[2025-04-02 22:43] LABS: Color, Urine Yellow (Yellow); Glucose, Dipstick Normal (Normal); Ketone-Dipstick Negative (Negative); Leukocyte Esterase-Dipstick Negative /ul (Negative); Nitrite-Dipstick Negative (Negative); Occult Blood-Urine Negative /ul (Negative); Protein-Dipstick 15 mg/dl (Negative); Specific Gravity, Urine 1.020 (1.002-1.030); Urine Bilirubin Dipstick Negative (Negative)
--- NOTE | 2025-04-02 22:44 | CT_ITS ---
PROCEDURE: ABDOMEN/PELVIS W IV CONT ONLY 04/02/2025 REASON FOR EXAM: RIGHT LOWER QUADRANT ABDOMINAL PAIN TECHNIQUE: ABDOMEN/PELVIS W IV CONT ONLY Coronal and Sagittal reconstruction series were provided. CONTRAST: Isovue 370 VOLUME: 98 mL One or more dose reduction techniques were used (e.g., Automated exposure control, adjustment of the mA and/or kV according to patient size, use of iterative reconstruction technique. RADIATION DOSE SUMMARY: CTDlvol: 25 mGy DLP: 826 mGycm COMPARISON: No FINDINGS: Clear lung bases. Normal heart size. Normal liver, gallbladder, pancreas,, adrenal glands and kidneys. No hydronephrosis. Normal bladder. Normal prostate. No retroperitoneal or pelvic adenopathy. No free air. Nondistended bowel. The appendix is borderline prominent, 7 mm cross-section. It does appear to be some wall enhancement and some subtle adjacent fat stranding, series 602, image 53. No definite appendicolith. However, likely there is focal cecal apical thickening present. No acute large bowel findings otherwise noted. No acute abdominal wall findings. CT/Abdomen/Pelvis W IV Cont ONLY IMPRESSION: Findings are consistent with early/mild appendicitis. Reading Location: [facility]
[2025-04-02 22:59] LABS: Lipase 22 U/L (13-75)
[2025-04-02 23:15] LABS: AST(SGOT) 20 U/L (<=37); Alanine Aminotransfer ALT/SGPT 12 U/L (<=46); Albumin, Serum 4.5 g/dL (3.5-5.0); Alkaline Phosphatase 83 U/L (40-129); Anion Gap 13 (5-15); BUN 23 mg/dL (4-19); BUN/Creat Ratio 23.6 RATIO (10-20); Calcium,Total 9.5 mg/dL (7.6-11.0); Carbon Dioxide 22.9 mmol/L (21.0-32.0); Chloride 101 mmol/L (98-108); Estimated Creatinine Clearance 144.84 ml/min (50-250); Globulin 3.1 g/dL (2.2-4.2); Glucose 96 mg/dL (70-99); Potassium 4.1 mmol/L (3.3-5.1)
[2025-04-02 23:52] VITALS: BP 140/61; PULSE 85; RESP 16; TEMP 36.8; O2SAT 95
[2025-04-03] VITALS (15 sets, daily range): BP systolic 111–135; BP diastolic 43–110; PULSE 48–97; RESP 12–20; TEMP 36.6–37.1; O2SAT 96–100; BMI 29.8
[2025-04-03] MEDS: 0.9% Normal Saline (1000mL) 1,000 ML 999 ML IV (00:02)
[2025-04-03] MEDS: Piperacil/Tazobactam 3.375 GM in 0.9% Normal Saline (50mL MB+) 50 ML IV ×2 (00:02→05:24)
--- OUTSIDE RECORDS SUMMARY | 2025-04-03 00:08 | XMS RPT_ITS | CCD ---
Author Organization [facility] Care Team Providers Care Boarding Kennel Or Cattery Operator Name Role Phone Dr. Felipe Cortez Primary Care Provider Dr. Felipe Cortez Referring Provider [phone] KEYONNA Wallace Attending Provider [phone] Unavailable Primary Care Provider UnavailFelipe Montano Primary [...] extended release oral tablet (1 source) Uncompetitive D-lknudu-V-aspartat e Receptor Antagonist, Sigma-1 Agonist Start: 10-12-2024 [...] inhaler, # 1 EA, 1 Refill(s), Pharmacy: [facility], 180.3, cm, 04/30/20 16:03:00 EDT, [...] 10-12-2024 FLU A ESUC Negative Normal NEGATIVE [facility] Comment on above: Performed By: #### U FLUS #### [address] [address] FLU B ESUC Negative Normal NEGATIVE [facility] Comment on above: Performed By: #### U FLUS #### [address] [address] Rapid influenza A/B antigens on 10-12-2024 FLUAV Ag Ql (Unsp spec) Negative NEGATIVE [facility] FLUBV Ag Ql (Unsp spec) Negative NEGATIVE [facility] Comment on above: Performed at [address] [address] [facility] ANES POSTPROC EVALon 024 ANES POSTPROC EVAL HNO ID: [id number] Author: CHRISTIANO JOSEPH DO Service: Anesthesiology Author Type: Anesthesiologist Type: Anesthesia Postprocedure Evaluation Filed: 02/22/2024 09:18 Note Text: POST ANESTHESIA EVALUATION NOTE : 2005 Procedure Summary Date: 02/22/24 Room / Location: [place] [address] / OR Anesthesia Start: 821 Anesthesia Stop: [...] February 22, 2024 TIME: 9:18 AM CSN: [id number] [facility] ANES PRE-OPon 02-22-2024 ANES PRE-OP HNO ID: [id number] Author: CHRISTIANO JOSEPH DO Service: Anesthesiology Author [...] and consent discussed: yes. Patient / Responsible Republican agrees to proceed: yes Patient / Surrogate [...] February 22, 2024 TIME: 8:10 AM CSN: [id number] [facility] HISTORY PHYSICALon HISTORY PHYSICAL HNO ID: [id number] Author: SANJAY WANG MD Service: Otolaryngology Author [...] February 22, 2024 TIME: 7:16 AM Normal [facility] OPERATIVE NOon 02-22-2024 OPERATIVE NO HNO ID: [id number] Author: SANJAY WANG MD Service: Otolaryngology Author Type: Physician Type: Operative Report Filed: 02/22/2024 14:41 Note Text: [facility] - OPERATIVE REPORT NENA WOOD : 2005 AGE: 18. SEX: M PATIENT TYPE: A HOSP SVC: LENORA LOCATION: [id number] ATTENDING PHYSICIAN: Sanjay Wang MD CSN NUMBER: [id number] DATE OF SURGERY/PROCEDURE: 02/22/2024 INCISION/PROCEDURE START TIME: 8:34 AM INCISION CLOSE/PROCEDURE END TIME: 8:41 AM PREOPERATIVE DIAGNOSIS: Nasal fracture. POSTOPERATIVE DIAGNOSIS: Nasal fracture. SURGEON: Sanjay Wang MD LACQUER DIPPING MACHINE OPERATOR: No Additional Staff SURGERY/PROCEDURE: Closed reduction , [...] Less than 2 mL. Sanjay Wang MD CB:[id number] /[id number] Normal [facility] CT MAXILLOFACIAL W/O CONTRAS Ton 02-06-2024 [...] 02/06/2024 11:37:48 AM Ordering Provider: NENA MORILLO [facility] ([place]) XR NASAL BONES MINIMUM 3 VIE WSon [...] 02/06/2024 11:01:03 AM Ordering Provider: NENA Dempsey [facility] ([place]) Re-Evaluation - PT (1)on Re-Evaluation - PT (1) [facility] Physical [facility] [address] [place] [address] [address] [place] [address] / REEVALUATION / MEDICARE RECERTIFICATION PHYSICAL THERAPY MR#: [id number] Acct: [id number] Name: NENA WOOD Rep #: [id number] : 2005 18 From: Hamlet Pimentel PT, ATC Referring Dr.: Dr. Felipe Kelly MD Status:REG RCR Insurance: [facility] SELF PAY INSURANCE Re-Evaluation Intro: Dr. Felipe [...] do not hesitate to contact me at [phone] by phone or if you have questions or concerns regarding this new plan of care! Sincerely, Hamlet Pimentel, PT, ATC 07/08/23 1404 CC: Dr. Felipe Cortez MD; Dr. Felipe Kelly MD [facility] Signed For Medicare only, by signing this I certify the plan of care. Physicians Signature Date Normal [facility] Inital Evaluation (1) - PTon 05-11-2023 Inital Evaluation (1) - PT [facility] [address] [place] [address] / REHABILITATION SERVICES INITIAL EVALUATION MR#: [id number] Acct: [id number] Name: NENA WOOD Rep #: [id number] : 2005 17 From: Hamlet Pimentel PT, ATC Referring Dr.: Dr. Felipe Kelly MD Status: RE G RCR Insurance: [employer] SELF PAY INSURANCE Patient's Visit Information Visit [...] to be FAXED BACK to us at [phone] for Medicare purposes. For Medicare only, by signing this I certify the plan of care. Please let me know if there are questions or concerns regarding this plan of care. Physician Signature: Date:__ 05/11/23 9363 CC: Dr. Felipe Cortez MD; Dr. Felipe Kelly MD [facility] Signed Normal [facility] Emergency Department Summary on 12-15-2022 Emergency Department Summary [facility] Medical Records Department [address] [place] [address] Emergency Department Summary 12/14/22 MR#: [id number] Acct: [id number] Name: NENA WOOD Rep #: [id number] : 2005 17 From: Kalyan Renteria DO [...] secondary to this comes in for evaluation [facility] Home Medications NK 04/18/19 [History Last Taken [...] All Closures (more content not included)... Normal [facility] CR Foot Complete 3+ Views [facility] 05-08-2022 CR Foot Complete 3+ Views Right Patient Name: NENA WOOD Diagnostic Radiology ACCESSION EXAM DATE/TIME PROCEDURE ORDERING PROVIDER [id number] 05/08/2022 14:41 EDT CR Foot Complete 3+ [id number] -KAEHLER, MARIA ELENA Views Right CPT code 34441 Reason For Exam (CR Foot Complete 3+ [...] Transcribed Date and Time: 05/08/2022 11:04 Normal [facility] XR FOOT RIGHT (MIN 3 VIEWS)o n 05-08-2022 Patient Name: NENA WOOD Diagnostic Radiology ACCESSION EXAM DATE/TIME PROCEDURE ORDERING PROVIDER [id number] 05/08/2022 14:41 EDT CR Foot Complete 3+ [id number] -KAEHLER, MARIA ELENA Views Right CPT code 75638 Reason For Exam (CR Foot Complete 3+ [...] THOMAS Transcribed Date and Time: 05/08/2022 11:04 [facility] Nathanael Mendes M D - 05/08/2022 Patient Name: NENA WOOD Diagnostic Radiology ACCESSION EXAM DATE/TIME PROCEDURE ORDERING PROVIDER [id number] 05/08/2022 14:41 EDT CR Foot Complete 3+ [id number] -REID, MARIA ELENA Views Right CPT code 62156 Reason For Exam (CR Foot Complete 3+ [...] THOMAS Transcribed Date and Time: 05/08/2022 11:04 [facility] Work Phone: Radiology Study observation (narrative) [facility] Work Phone: XR FOOT RIGHT (MIN 3 VIEWS)O rdered By: Nathanael Flores on 05-08-2022 [facility] Work [facility]: Vital Signs Date Time Vital Sign Value Performing Clinician Edward sarkar 10-12-2024 10:45-0500 Body height 180.3 cm Felipe Cortez MD Work Phone: [employer] 10-12-2024 10:45-0500 Body mass index (BMI) [Ratio] 31.38 kg/m2 Felipe Cortez MD Work Phone: [employer] 10-12-2024 10:45-0500 Body temperature 98.1 [degF] Felipe Cortez MD Work Phone: [employer] 10-12-2024 10:45-0500 Body weight 102.06 kg Felipe Cortez MD Work Phone: [employer] 10-12-2024 10:45-0500 Diastolic blood pressure 93 mm[Hg] Felipe Cortez MD Work Phone: [employer] 10-12-2024 10:45-0500 Heart rate 96 /min Felipe Cortez MD Work Phone: [employer] 10-12-2024 10:45-0500 Respiratory rate 16 /min Felipe Cortez MD Work Phone: [employer] 10-12-2024 10:45-0500 SaO2% (BldA) [Mass fraction] 98 % Felipe Cortez MD Work Phone: [employer] 10-12-2024 10:45-0500 Systolic blood pressure 142 mm[Hg] Felipe Cortez MD Work Phone: [employer] 02-06-2024 11:58-0400 Diastolic Blood Pressure Non-Invasive 68 mm[Hg] NENA MORILLO MD [facility] 02-06-2024 11:58-0400 Heart rate 64 /min NENA MORILLO MD [facility] 02-06-2024 11:58-0400 Respiratory rate 18 /min NENA MROILLO MD [facility] 02-06-2024 11:58-0400 Systolic Blood Pressure Non-Invasive 116 mm[Hg] NENA MORILLO MD [facility] 02-06-2024 09:49-0400 Blood Pressure Cuff Size NENA MORILLO MD [facility] 02-06-2024 09:49-0400 Blood Pressure Location NENA MORILLO MD [facility] 02-06-2024 09:49-0400 Blood Pressure Method NENA MORILLO MD [facility] 02-06-2024 09:49-0400 Body temperature 98.6 [degF] NENA MORILLO MD [facility] 02-06-2024 09:49-0400 Diastolic Blood Pressure Non-Invasive 60 mm[Hg] NENA MORILLO MD [facility] 02-06-2024 09:49-0400 Heart rate 55 /min NENA MORILLO MD [facility] 02-06-2024 09:49-0400 Respiratory rate 18 /min NENA MORILLO MD [facility] 02-06-2024 09:49-0400 Systolic Blood Pressure Non-Invasive 104 mm[Hg] NENA MORILLO MD [facility] 12-14-2022 21:47-0400 Body height 180.34 cm [facility] 12-14-2022 21:47-0400 Body mass index (BMI) [Percentile] Per age and sex 97.2 % [facility] 12-14-2022 21:47-0400 Body mass index (BMI) [Ratio] 30.5 kg/m2 [facility] 12-14-2022 21:47-0400 Body temperature 98.3 [degF] [facility] 12-14-2022 21:47-0400 Body weight 99.3 kg [facility] 12-14-2022 21:47-0400 Diastolic blood pressure 70 mm[Hg] [facility] 12-14-2022 21:47-0400 Heart rate 90 /min [facility] 12-14-2022 21:47-0400 Respiratory rate 18 /min [facility] 12-14-2022 21:47-0400 SaO2% (BldA) [Mass fraction] 99 % [facility] 12-14-2022 21:47-0400 Systolic blood pressure 135 mm[Hg] [facility] 04-14-2022 16:21-0400 Body temperature 98.7 [degF] Dr. Felipe Cortez Work Phone: [facility] Work Phone: 04-14-2022 16:21-0400 Diastolic blood pressure 66 mm[Hg] Dr. Felipe Cortez Work Phone: [facility] Work Phone: 04-14-2022 16:21-0400 Heart rate 73 /min Dr. Felipe Cortez Work Phone: [facility] Work Phone: 04-14-2022 16:21-0400 Respiratory rate 14 /min Dr. Fleipe Cortez Work Phone: [facility] Work Phone: 04-14-2022 16:21-0400 SaO2% (BldA) [Mass fraction] 99 % Dr. Felipe Cortez Work Phone: [facility] Work Phone: 04-14-2022 16:21-0400 Systolic blood pressure 108 mm[Hg] Dr. Felipe Cortez Work Phone: [facility] Work Phone: Encounters Encounter Date Encounter Type Care Provider Facility Start: 10-12-2024 End: 10-12-2024 Emergency department patient visit FELIPE CORTEZ [facility] Start: 10-12-2024 End: 10-12-2024 Office outpatient new 30 minutes Felipe Cortez MD Work Phone: [facility] Comment on above: Upper respiratory tr act infection, unspecified type (Primary Dx) Start: 09-13-2024 End: 09-13-2024 ambulatory MERCEDEZ FLOWERS [employer]-MAGNETIC PROSPECTING SUPERVISOR Facility:A Start: 02-22-2024 End: 02-22-2024 ambulatory SANJAY WANG Facility:[id number] Start: 02-06-2024 End: 02-06-2024 Emergency department patient visit NENA MORILLO MD [facility] Start: 08-04-2023 End: 08-04-2023 ambulatory Felipe Kelly Facility:[facility] Start: 08-04-2023 End: 08-04-2023 ambulatory [facility] Work Phone: Start: 08-04-2023 End: 08-04-2023 Discharged Recurring [facility] Work Phone: Start: 05-06-2023 End: 05-06-2023 ambulatory [facility] Start: 12-14-2022 End: 12-15-2022 Emergency department patient visit [facility] Facility:[facility] Start: 12-14-2022 End: 12-14-2022 Emergency department patient visit [facility] Start: 05-08-2022 ambulatory Maria Elena [facility] Start: 05-08-2022 End: 05-08-2022 Subsequent hospital visit by physician Maria Elena NEWBY Work Phone: [facility] Start: 04-14-2022 End: 04-14-[address] Felipe Cortez Work Phone: [facility] Work Phone: Start: 04-14-2022 End: 04-14-[address] Felipe Cortez Work Phone: [facility] Procedures Date Procedure Procedure Detail Performing Clinician Start: 10-12-2024 Iaadiadoo influenza Dony Roth [employer] - MAGNETIC PROSPECTING SUPERVISOR Work Phone: Start: 05-08-2022 Radex foot complete minimum 3 views Maria Elena NEWBY Work Phone: Start: 04-14-2022 X-ray of both feet Dr. Felipe Cortez Work Phone: Start: 11-01-2008 Tube (qualifier value) NENA MORILLO MD Comment on above: in ears Plan of Treatment Date Care Activity Detail Author Start: 01-26-2033 DTaP/Tdap/Td vaccine (8 - Td or Tdap) DTaP/Tdap/Td vaccine (8 - Td or Tdap) [facility] Start: 04-23-2024 COVID-19 Vaccine ( season) COVID-19 Vaccine ( season) [facility] Start: 03-23-2024 Influenza vaccination Flu vaccine (# 1) [facility] Start: 2023 Hepatitis C screening Hepatitis C sc reen [facility] Start: 04-23-2022 Influenza vaccination Flu vaccine (# 1) [facility] Start: 2020 HIV screening HIV screen [facility] Start: 2017 Depression Screen Depression Screen [facility] Start: 2012 DTaP/Tdap/Td vaccine (1 - Tdap) DTaP/Tdap/Td vaccine (1 - Tdap) [facility] Start: 2005 COVID-19 Vaccine (#1) COVID-19 Vacci ne (#1) [facility] Patient Education ED Laceration: All Closures [facility] Work Phone: Patient referral [facility] Work Phone: Immunizations Immunization Date Immunization Notes Care Provider Fa lisandro 01-26-2023 tetanus toxoid, redu abdoul diphtheria toxoid, and acellular pertussis vaccine, adsorbed; Translations: [Boostrix (Tdap)] NENA MORILLO MD [facility] 06-11-2021 Human Papillomavirus 9-valent vaccine; Translations: [Gardasil 9] NENA MORILLO MD [facility] 01-09-2021 Human Papillomavirus 9-valent vaccine; Translations: [Gardasil 9] NENA MORILLO MD [facility] 11-19-2020 Human Papillomavirus 9-valent vaccine; Translations: [Gardasil 9] NENA MORILLO MD [facility] 02-17-2017 diphtheria and tetan us toxoids, adsorbed for pediatric use NENA MORILLO MD [facility] 02-17-2017 meningococcal polysaccharide (groups A, C, Y and W-135) diphtheria toxoid conjugate vaccine (MCV4P) NENA MORILLO MD [facility] 02-17-2017 tetanus and diphther ia toxoids, adsorbed, preservative free, for adult use (5 Lf of tetanus toxoid and 2 Lf of diphtheria toxoid) NENA MORILLO MD [facility] 04-02-2011 diphtheria, tetanus toxoids and acellular pertussis vaccine NENA MORILLO MD [facility] 04-02-2011 measles/mumps/rubell a virus vaccine NENA MORILLO MD [facility] 04-02-2011 poliovirus vaccine, inactivated NENA MORILLO MD [facility] 04-02-2011 varicella virus vaccine WILL SHARON MORILLO MD [facility] 06-27-2007 diphtheria, tetanus toxoids and acellular pertussis vaccine NENA MORILLO MD [facility] 06-27-2007 haemophilus influenz ae type b vaccine, PRP-T conjugate NENA MORILLO MD [facility] 06-27-2007 pneumococcal conjuga te vaccine, 13 valent NENA MORILLO MD [facility] 01-24-2007 measles/mumps/rubell a virus vaccine NENA MORILLO MD [facility] 01-24-2007 pneumococcal conjuga te vaccine, 13 valent NENA MORILLO MD [facility] 01-24-2007 varicella virus vaccine WILL SHARON MORILLO MD [facility] 03-31-2006 poliovirus vaccine, inactivated NENA MORILLO MD [facility] 01-20-2006 pneumococcal conjuga te vaccine, 13 valent NENA MORILLO MD [facility] 2005 diphtheria, tetanus toxoids and acellular pertussis vaccine NENA MORILLO MD [facility] 2005 haemophilus influenz ae type b vaccine, PRP-T conjugate NENA MORILLO MD [facility] 2005 hepatitis B vaccine, unspecified formulation NENA MORILLO MD [facility] 2005 poliovirus vaccine, inactivated NENA MORILLO MD [facility] 2005 diphtheria, tetanus toxoids and acellular pertussis vaccine NENA MORILLO MD [facility] 2005 haemophilus influenz ae type b vaccine, PRP-T conjugate NENA MORILLO MD [facility] 2005 hepatitis B vaccine, unspecified formulation NENA MORILLO MD [facility] 2005 pneumococcal conjuga te vaccine, 13 valent NENA MORILLO MD [facility] 2005 poliovirus vaccine, inactivated NENA MORILLO MD [facility] 2005 diphtheria, tetanus toxoids and acellular pertussis vaccine NENA MORILLO MD [facility] 2005 DTaP-hepatitis B and poliovirus vaccine NENA MORILLO MD [facility] 2005 haemophilus influenz ae type b vaccine, PRP-T conjugate NENA MORILLO MD [facility] 2005 hepatitis B vaccine, unspecified formulation NENA MORILLO MD [facility] 2005 poliovirus vaccine, inactivated NENA MORILLO MD [facility] Payers Date Payer Category Payer Self-pay [id number] 2022 Unknown [id number] 2005 Unknown [id number] 2.16. [id number] 2005 Unknown [id number] 2.16.8 [id number] 2005 Unknown [id number] 2.16.8 [id number] 2005 Unknown [id number] 2.16.8 [id number] 2005 Unknown [id number] 2.16. [id number] 1986 Unknown [id number] 2.16. [id number] 1986 Unknown [id number] 2.16. [id number] Unknown [id number] Unknown Unknown [id number] Unknown [id number] 2.16.8 [id number] Unknown [id number] 2.16.8 [id number] Social History Date Type Detail Facility Start: 04-14-2022 End: 12-14-2022 Tobacco smoking status MNIS Unknown if ever smoked [facility] Start: 2005 Sex Assigned At Male [facility] Start: 2005 Sex Assigned At Not on file [facility] Work Phone: Tobacco Tobacco Use: no tobacco or smoke exposure. [facility] Tobacco smoking status No Smokin g Status Entered [facility] Start: 10-12-2024 Tobacco smoking stat us MNIS Never smoked tobacco [employer] Start: 10-12-2024 Tobacco use and exposure User of smokeless tobacco [employer] [facility] History of tobacco use Chews Tobacco [employer] Start: 10-12-2024 Alcoholic beverage intake Ex-drinker (finding) Bon [facility] Start: 05-08-2022 History of Social function [facility] Start: 05-08-2022 Tobacco use panel Tapan looney [facility] Start: 10-12-2024 Alcohol Comment Social [facility] Functional Status Date Assessment Result Facility 02-06-2024 Functional Status Independent [facility] sandie [facility] 02-06-2024 Functional Status Ambulation in [place], Ambulation in Room [facility] Mental Status Date Assessment Result Facility 02-06-2024 Mental Status Oriented x 4 [facility] 02-06-2024 Mental Status [facility] Clinical Notes 12-14-2022 to 02-22-2024 Note Date & Type Note Facility 02-22-2024 Note HNO ID: [id number] Author: WILSON FIORE APRN.CRNA Service: Anesthesiology Author Type: Nurse Rail Car Unloader Type: Anesthesia Procedure Notes Filed: 02/22/2024 08:35 Note Text: ANESTHESIOLOGY PROCEDURE NOTE Airway General Information Procedure Start Time/Medication Administration: 02/22/2024 8:29 AM Procedure End Time: 02/22/2024 8:29 AM Patient location during procedure: OR Timeout Performed Pre-procedure: timeout performed Consent Obtained: Yes Patient identity confirmed: arm band, care customer care team coach, patient and family Staffing Anesthesiologist: Christiano Joseph [...] no Airway not difficult SIGNATURE: Wilson Fiore APRN.SERVICE LOSS CONTROL CONSULTANT PATIENT NAME: Nena Wood DATE: February 22, 2024 TIME: 8:34 AM CSN: [id number] [facility] 02-21-2024 Note HNO ID: [id number] Author: PATRICIA, LEANNE, RN Service: Nursing Author [...] directed. Bring copy of Living Will/Power of Stiff Leg Derrick Operator. Do not smoke or chew. If you [...] the Surgery Center. UPON ARRIVAL: Access to [facility] is located on [address] Occupational Health And Safety Adviser parking is available for your convenience from [...] instructions for the morning of your procedure. [facility] 02-18-2024 Note HNO ID: [id number] Author: SUELLEN SANDERS APRN.CNP Service: Anesthesiology Author Type: Nurse [...] instructions for the morning of your procedure. [facility] 02-06-2024 Hospital Discharge instructions Patient Education [...] or change in behavior or speech Seizure [id number] [employer] [address] [place] [address]. All rights reserved. This information is not [...] Wound changes colors Numbness around the wound [phone] [employer] [address] [place] [address]. All rights reserved. This information is not intended as a substitute for professional medical care. Always follow your healthcare professional's instructions. Follow Up Care 02/06/2024 09:47:54 With:VIVIANA RAMIREZ DO Address: [address] [place] [address] [phone] When:3-5 days With:FELIPE CORTEZ MD Address: [address] [place] [address]- When:2-4 days [facility] 02-06-2024 Note Discharge Instructions Thank you for allowing [facility] to assist you with your healthcare needs. The following is important discharge information regarding your hospital visit. What to Do Next Instructions from Your Care Team No qualifying data available. Post Acute Orders No qualifying data available. You Need to Schedule the Following Appointments Follow Up with VIVIANA RAMIREZ DO When:Within 3-5 days Where:[address] [place] [address] [phone] Follow Up with FELIPE CORTEZ MD When:Within 2-4 days Where:[address] [facility] [place] [address]- Allergies NKA Medications Please ask your primary [...] or change in behavior or speech Seizure [phone] [employer] [address] [place] [address]. All rights reserved. This information is not [...] Wound changes colors Numbness around the wound [phone] [employer] [address] [place] [address]. All rights reserved. This information is not intended as a substitute for professional medical care. Always follow your healthcare professional's instructions. Additional Information VACCINATE! IT SAVES LIVES! Members of the community who have not yet received the COVID-19 vaccine and would like to receive it can visit one of [facility] vaccine clinics. There are many vaccine clinic locations within the [facility]. For locations and available times, please visit [email or web address] It is important to note that some COVID mobile vaccine clinics are held outdoors and may be canceled in rainy or stormy conditions. To learn more about pediatric vaccinations (ages 5-11), we invite you to visit the [facility] webpage. [email or web address]/p [email or web address]-Ddedc-Kxqaekwefce-Freq ysfacl-[email or web address].html To learn more about the COVID-19 vaccine, we invite you to visit the CDC website for a list of frequently asked questions. https://www.cdc.gov/coronavirus/ 2019-ncov/vaccines/faq.html [facility] Patient Portal Access Instructions: Stay connected with your healthcare team and access your personal medical information anytime with the [facility] Patient Portal. If you would like a full copy of your medical records please contact the [facility] Medical Records Department Wednesday through Wednesday between 8a.m. and 4:30p.m. Please follow the directions below to access the portal: 1.Access the email account you provided upon registration to the [facility].2.Look for an invitation email from [facility].3.Open the email and access the invitation link: Accept Invitation to [facility]4.Fill in the required james to create your account. Sign into [email or web address] with your username and password that you [...] you will allow to register on the [facility] Patient Portal for access to your information. You can also access the [facility] Patient Portal on the [employer] jose carlos. Simply click on Health Records under Health Data and then click on the MYFLY logo. HOW TO SAFELY DISPOSE OF PRESCRIPTION [...] Call your local pharmacy or go to [email or web address] to find one close to you.3.Make use of household items: Use cat litter or old coffee grounds to dispose medications if other options are not available. Mix your drugs with these household products, seal them in an airtight container and throw it into the garbage. Call [facility]: [phone] to be sure your drugs can be [...] aware that I should contact my doctor. 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 If you have any further concerns or concerns that the area is becoming infected please return for repeat evaluation [facility] Work Phone: Evaluation + Plan note No data available for this section [facility] Evaluation note Diagnosis Onset Date Contusion of right foot including toes acute [facility] Work Phone: Evaluation noteNo assessment information available [facility] Work Phone: Evaluation note* Diagnosis Upper respiratory tract infection, unspecified type- [facility] Attachments The following attachments cannot be sent through Care Everywhere. * URI (Upper Respiratory Infection): Viral (East Timorese) * Antibiotics: General Info ([place]orese) [facility] Chief Complaint and Reason for Visit Chief [...] section and content) DATE CREATED AUTHOR 05/22/2022 [facility] DATE CREATED AUTHOR AUTHOR'S ORGANIZ ATION 05/07/2023 [facility] DATE CREATED AUTHOR AUTHOR'S ORGANIZ ATION 11/04/2023 [facility] DATE CREATED AUTHOR AUTHOR'S ORGANIZ ATION 02/17/2024 [facility] ([place]) DATE CREATED AUTHOR AUTHOR'S ORGANIZ ATION 02/24/2024 [facility] DATE CREATED AUTHOR AUTHOR'S ORGANIZ ATION 05/07/2024 [facility] DATE CREATED AUTHOR AUTHOR'S ORGANIZ ATION 10/06/2024 [facility] DATE CREATED AUTHOR AUTHOR'S ORGANIZ ATION 10/14/2024 [facility] Care Teams (unrecognized sec tion and content) [...] MD Attending Provider, Referring P wayne Active 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 [facility] [employer] [facility]. provides no warranty or guarantee of the accuracy or completeness of information in this document.
[2025-04-03] MEDS: Lactated Ringers 1,000 ML 100 ML IV ×2 (03:00→08:26)
[2025-04-03] MEDS: 0.9% Saline Lock 10 ML Syringe IV ×2 (05:24→09:42)
--- NOTE | 2025-04-03 06:05 | PCM.PRE.AN2 ---
ASA Classification* ASA Classification ASA Classification: 1 and E Assessment & Plan Anesthesia* Anesthesia Assessment Anesthesia Assessment: Discussed sedation and/or anesthesia options, risks, benefits, and alternatives with patient/parents/legal guardian/POA. Questions invited. The patient/parents/legal guardian/POA seems to understand and agrees to proceed with anesthesia plan. Reviewed the physical assessment, medical history, allergy history and patient home medications list prior to surgery/procedure/anesthetic and documented any changes. Performed airway and anesthesia risk assessments. Anesthesia Type Anesthesia Type: General History Source History Obtained from:: Patient and Chart Anesthesia Focused Assessment* Temperature: 98.2 F Pulse Rate: 48 Blood Pressure: 111/52 Respiratory Rate: 16 Pulse Ox: 98 Oxygen Delivery Method: Room Air Airway Assessment Mouth opens: >3 cm Mallampati Score: II Teeth Condition: Intact Neck Range of motion (ROM): Full ROM Labs Anesthesia Preop lab: CBC WBC 10.1 K/mm3 (4.4-11.0) 04/02/25 22:35 04/02/25 RBC 5.04 M/mm3 (4.6-6.2) 04/02/25 22:35 04/02/25 Hgb 15.8 g/dL (13.0-16.5) 04/02/25 22:35 04/02/25 Hct 46.2 % (40-54) 04/02/25 22:35 04/02/25 Plt Count 270 K/mm3 (150-450) 04/02/25 22:35 04/02/25 CHEMISTRY Potassium 4.1 mmol/L (3.3-5.1) 04/02/25 22:35 04/02/25 Sodium 137 mmol/L (133-145) 04/02/25 22:35 04/02/25 BUN 23 mg/dL (4-19) H 04/02/25 22:35 04/02/25 Creatinine 0.98 mg/dL (0.70-1.20) 04/02/25 22:35 04/02/25 Glucose 96 mg/dL (70-99) 04/02/25 22:35 04/02/25 COAG Pre-Assessment Diagnosis/Proposed Procedure Planned Operative Procedure(s): Laparoscopic appendectomy Anesthesia History Anesthesia History - early childhood educator aide: Anesthesia History - early childhood educator aide Hx Hospitalization Any Problems With Anesthesia No 04/03/25 05:10 Cholinesterase deficiency No 04/03/25 05:10 You/Your Family Experience No 04/03/25 05:10 fever (hyperthermia) with Relationship Recent Exposure to Contagious No 04/03/25 05:10 Disease Does patient have nerve No 04/03/25 05:10 stimulator Patient instructed to have No 04/03/25 05:10 device shut off --Does patient have Pacemaker No 04/03/25 05:12 or ICD? When Was Last Pacemaker Check QUESTION #4 FULL TEXT: You/Your Family Experience fever (hyperthermia) with Anesthesia Last Oral Intake Last Oral intake: Last Oral Intake NPO since 20:00 04/03/25 05:12 Meds taken in AM with sips of No 04/03/25 05:12 water? Meds patient instructed to take am of surgery PONV PONV - early childhood educator aide: PONV - early childhood educator aide Female HX of Motion Sickness HX of N/V After Surgery Non-Smoker Duration of Surgery greater than 60 minutes Number of Risk Factors PONV Score Height & Weight Height & Weight: Anesthesia: Height & Weight Height 5 ft 11 in 04/03/25 05:12 Weight: 97 kg 04/03/25 05:12 Body Mass Index (BMI) 29.8 04/03/25 05:12 Respiratory Assessment Respiratory Assessment - early childhood educator aide: Respiratory Tract Infection Hx - early childhood educator aide Hx Respiratory Tract Infection No 04/03/25 05:10 STOP Sleep Apnea STOP Sleep Apnea - early childhood educator aide: STOP Sleep Apnea - early childhood educator aide Hx Hypertension No 04/03/25 00:40 Hx Sleep Apnea No 04/03/25 00:40 CPAP BIPAP Do you snore loudly (louder Yes 04/03/25 00:40 than talking or can be heard Do you often feel tired/ No 04/03/25 00:40 fatigued/ sleepy during daytime? Has anyone observed you stop No 04/03/25 00:40 breathing during sleep? STOP Results Negative 04/03/25 00:40 QUESTION #5 FULL TEXT : Do you snore loudly (louder than talking or can be heard through closed doors)? 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 Specify any problems Hx of Preganancy in last 3 N/A 04/03/25 00:40 Months Nurse Filling Out Transfusion AREAD 04/03/25 00:40 & Questions: Date: 04/03/25 04/03/25 00:40 Time: 00:42 04/03/25 00:40 Patient unable to answer at this time (ie. confused, unrespo /Reproduction History /Reproductive History - early childhood educator aide: /Reproductive Hx- early childhood educator aide Hx Now No 04/03/25 05:10 Gestational Age (in weeks): EDC: Hx Hx Para Hx Section SAB No 04/03/25 05:10 Active Medications Active Medications: Current Medications Generic Name Dose Route Start Last Admin Trade Name Freq PRN Reason Stop Dose Admin Sodium Chloride 250 mls @ 15 mls/hr 04/03/25 00:45 IV .[id number] PRN Saline Flush Sodium Chloride 250 mls @ 15 mls/hr 04/03/25 00:45 IV .[id number] PRN Additional IVPB Infusion Lactated Ringer's 1,000 mls @ 100 mls/hr 04/03/25 02:15 04/03/25 03:00 IV 100 mls/hr .Q10H TOMI Administration Piperacillin Sod/Tazobactam 50 mls @ 12.5 mls/hr 04/03/25 06:00 04/03/25 05:24 Sod 3.375 gm/ Sodium Chloride IV 12.5 mls/hr Q8 TOMI Administration Morphine Sulfate 2 - 4 mg 04/03/25 02:01 04/03/25 05:49 Morphine 2 Mg/Ml Syringe IV 2 mg Q2H PRN PRN Administration Pain Score 1-10 Ondansetron HCl 4 mg 08/12/25 02:13 Ondansetron 4 Mg/2 Ml Vial IV Q8H PRN PRN NAUSEA/VOMITING Sodium Chloride 10 - 40 ml 04/03/25 00:45 04/03/25 05:24 0.9% Saline Lock 10 Ml Syringe IV 10 ml UD PRN Administration SALINE FLUSH PFSH Home Medications ?Medication ?Instructions ?Recorded ?Last Taken ?Type NK 04/18/19 Unknown History Allergy/AdvReac Type Severity Reaction Status Date / Time No Known Allergies Allergy Verified 04/02/25 22:03 Surgical History (Updated 04/03/25 @ 06:[address] Sheldon De La O MD) Nasal bones, closed fracture History of myringotomy Social History Smoking Status: Never smoker alcohol intake: never Review of Systems (Anesthesia) ROS Narrative System reviewed and no additional complaints, except as documented.
--- NOTE | 2025-04-03 06:05 | PCM.HP.STD ---
HPI - General General Date of Admission: 04/03/25 HPI Narrative NENA MISHRA, is a 19 M who presents with abdominal pain that started yesterday. he denies fevers or chills or nausea or vomiting. the pain was diffuse and now it is in the right lower quadrant. PFSH Home Medications ?Medication ?Instructions ?Recorded ?Last Taken ?Type NK 04/18/19 Unknown History Allergy/AdvReac Type Severity Reaction Status Date / Time No Known Allergies Allergy Verified 04/02/25 22:03 Surgical History History of myringotomy Social History Smoking Status: Never smoker alcohol intake: never Vital Signs Vital Signs Vital Signs: 04/02/25 22:01 04/02/25 23:52 04/03/25 01:00 Temperature 97.7 F L 98.3 F Temperature Source Oral Pulse Rate 100 85 Respiratory Rate 18 16 Respiratory Effort Normal Non-Labored Respiratory Depth Normal Respiratory Pattern Normal Blood Pressure 133/72 H 140/61 H Blood Pressure Mean 92 87 Blood Pressure Source Blood Pressure Position Blood Pressure Location Pulse Ox 98 95 Oxygen Delivery Method Room Air Room Air 04/03/25 05:12 Temperature 98.2 F Temperature Source Oral Pulse Rate 48 L Respiratory Rate 16 Respiratory Effort Respiratory Depth Respiratory Pattern Blood Pressure 111/52 L Blood Pressure Mean 71 Blood Pressure Source Monitor Blood Pressure Position Semi-Fowlers Blood Pressure Location Left Arm Pulse Ox 98 Oxygen Delivery Method Room Air Weight Weight: 213 lb 13.574 oz Body Mass Index (BMI) 29.8 Physical Exam Const oriented x3 and no apparent distress Resp normal respiratory effort GI soft to palpation Palpation: tender RLQ Extremity normal to inspection Results Lab / Micro Data 04/02/25 22:35 04/02/25 22:35 Labs: Laboratory Results - last 24 hr 04/02/25 22:28: Urine Color Yellow, Urine Clarity Clear, Urine pH 6.0, Ur Specific [place] 1.020, Urine Protein 15 H, Urine Glucose (UA) Normal, Urine Ketones Negative, Urine Occult Blood Negative, Urine Nitrite Negative, Urine Bilirubin Negative, Urine Urobilinogen 1 H, Ur Leukocyte Esterase Negative, Urine RBC 0 SEEN, Urine WBC 0-5 SEEN, Ur Squamous Epith Cells 0 SEEN, Urine Bacteria RARE, Urine Mucus 0 SEEN 04/02/25 22:35: WBC 10.1, RBC 5.04, Hgb 15.8, Hct 46.2, MCV 91.7, MCH 31.3, MCHC 34.2, RDW Std Deviation 42.3, RDW Coeff of Edwin 12.6, Plt Count 270, MPV 10.2, Immature Gran % (Auto) 0.500, Neut % (Auto) 66.4, Lymph % (Auto) 22.6, [place] % (Auto) 8.1, Eos % (Auto) 1.9, Baso % (Auto) 0.5, Absolute Neuts (auto) 6.7, Absolute Lymphs (auto) 2.27, Nucleated RBC % 0, Sodium 137, Potassium 4.1, Chloride 101, Carbon Dioxide 22.9, Anion Gap 13, BUN 23 H, Creatinine 0.98, Estim Creat Clear Calc 144.84, Est GFR (MDRD) Non-Af 114, BUN/Creatinine Ratio 23.6 H, Glucose 96, Calcium 9.5, Total Bilirubin 0.57, AST 20, ALT 12, Alkaline Phosphatase 83, Total Protein 7.6, Albumin 4.5, Globulin 3.1, Albumin/Globulin Ratio 1.4, Lipase 22 Imaging Radiology Impression Abdomen/Pelvis CT 04/02/25 22:44 IMPRESSION: Findings are consistent with early/mild appendicitis. [place] Location: [place] [address] Assessment & Plan Assessment/Plan (1) Acute appendicitis: PLAN: The patient has a white count that is at the upper limit of normal. The patient's CT showed early appendicitis. I discussed laparoscopic appendectomy with the patient and patient's mother in detail. I discussed the risks of bleeding, infection, injury to other organs such as the bowel, bladder, ureter. Patient understands all the risks and is willing to proceed. Chris Knutson MD Pager: [facility] [address] [place] [address], [address] [place] [address] Office:
--- NOTE | 2025-04-03 06:20 | APP_PTH ---
PATIENT: NENA MISHRA LOC: PCU U#:[id number] AGE/SX: 19/M ROOM: [facility] RE04/03/[address]: Dr. Chris Knutson MD : 2005 BED: 1 DIS: 04/03/2025 SPEC #: [id number] RECD: 04/03/25 07:29 STATUS: AYDEN FUENTESAdrian #: [id number] [place]: 04/03/25 06:[address]: Chris Knutson DEPT: SURGICAL PATHOLOGY RECD BY: Lavell Turcios ENTERED: 04/03/25 09:34 SP TYPE: APPENDIX OTHR DR: Dr. Felipe Monroe MD Tissues: A - Appendix, NOS Procedures: Surgery Specimen Level III HEADER OPERATION: Laparoscopic appendectomy PRE-OP DIAGNOSIS: Acute appendicitis TISSUE SUBMITTED: A- Appendix MICROSCOPIC DIAGNOSIS A. Appendix, appendectomy: - Acute appendicitis. MICROSCOPIC DESCRIPTION Slides are reviewed. GROSS DESCRIPTION A. Received in formalin labeled with the patient's name and date of , designated as appendix is a 5.4 x 0.8 cm ramos-pink to red appendix with up to 2.1 cm of attached, focally congested mesoappendix. There are focal serosal adhesions. The margin is inked black and shaved. Sectioning reveals ramos-pink, focally congested mucosa and minimal, slightly hemorrhagic and somewhat tenacious luminal contents. The distal tip is focally fibrotic however, no definitive lesions are grossly appreciated. Threading Machine Setter sections are submitted in 1 cassette. MA 04/03/2025 CPT:91971
[2025-04-03] MEDS: Bupiv/Epi 0.25% 30 ML Vial (06:56)
--- NOTE | 2025-04-03 07:07 | OP.PCM_ITS ---
Operative Report (Standard) Operative Information Date of Procedure: 04/03/25 Pre-Operative Diagnosis: Acute appendicitis Post-Operative Diagnosis: Acute appendicitis Surgery/Procedure Performed: Laparoscopic appendectomy breeder service technician: No Type of Anesthesia: General/Regional RN Documented Start/Stop Times: Operation Date: 04/03/25 06:20 Case Time Anesthesia Start 04/03/25 06:10 Into Room 04/03/25 06:10 Procedure Start 04/03/25 06:34 Procedure End 04/03/25 06:53 Anesthesia End 04/03/25 06:59 Out of Room 04/03/25 06:59 Into Recovery 04/03/25 07:02 Procedure Start Time: 06:34 Procedure Stop Time: 06:53 Select all DRAINS/GRAFTS/IMPLANTS that apply: None Estimated Blood Loss: 5 Specimen collected: Yes Description of specimen(s) removed: Appendix Description of surgery: The patient was brought into the operating room and general anesthesia was induced. The left arm was tucked and the abdomen was prepped and draped in u sual sterile fashion. A small midline incision was made superior to the umbilicus and deepened to the level of the fascia. The fascia was elevated and incised. The peritoneum was also elevated and incised. A finger sweep was performed and a balloon trocar was placed into the abdomen and inflated. The abdomen was insufflated to 15 mmHg and the camera was inserted and the abdomen was inspected for any injuries upon entering the abdomen. There were none. The patient was placed in Trendelenburg position and a 5 mm ports placed in the left lower quadrant and suprapubic areas under direct visualization. Next using atraumatic bowel graspers the appendix was identified. The appendix was grasped and elevated and Enseal was used to take down the mesoappendix. A stapler was used to come across the base of the appendix. The appendix was then placed in Endo Catch bag and removed through the umbilical incision. The staple line was inspected and found to be hemostatic and intact. The 2 5 mm ports are removed under direct visualization. The balloon trocar was deflated and removed and all the air was removed from the abdomen. The umbilical incision fascia was closed with an 0 Vicryl [id number] suture. The incisions were then irrigated with saline and dried. Local anesthetic was injected into the incision sites. The skin incisions were then closed with interrupted 4-0 Monocryl suture and Steri- Strips. Bandages were applied and the patient was awoken and taken to PACU in stable condition. Patient tolerated the procedure well. Surgical Findings: Acute appendicitis Complications Complications: No Admit VTE Documentation VTE Mechan Device Prophylaxis: SCD's
--- NOTE | 2025-04-03 07:11 | PCM.DC.SUM ---
Providers Date of Admission: 04/03/25 Primary Care Physician: Dr. Felipe Monroe MD Diagnosis Discharge Diagnosis (1) Acute appendicitis: Status: Acute Code(s): K35.80 - Unspecified acute appendicitis Plan: The patient has a white count that is at the upper limit of normal. The patient's CT showed early appendicitis. I discussed laparoscopic appendectomy with the patient and patient's mother in detail. I discussed the risks of bleeding, infection, injury to other organs such as the bowel, bladder, ureter. Patient understands all the risks and is willing to proceed. Chris Knutson MD Pager: [facility] [address] [place] [address], [address] [place] [address] Office: Medications at Discharge Home Medications oxycodone 5 mg tablet 5 - 10 mg (1 - 2 x 5 mg) PO Q4H PRN PRN Pain Score 4-10 5 days #14 tabs 04/03/25 Hospital Course Operations appendectomy Procedures None Summary of Care Provided Hospital Course: Patient presented with abdominal pain and was diagnosed with acute appendicitis. He was admitted and kept on pain medication and antibiotics. The following morning he was taken for laparoscopic appendectomy. Once tolerating a diet he will be discharged home. Weight / BMI Weight Weight: 213 lb 13.574 oz Body Mass Index (BMI) 29.8 ABG / Lab / Microbiology Data 04/02/25 22:35 04/02/25 22:35 Laboratory: Laboratory Results - last 24 hr 04/02/25 22:28: Urine Color Yellow, Urine Clarity Clear, Urine pH 6.0, Ur Specific [place] 1.020, Urine Protein 15 H, Urine Glucose (UA) Normal, Urine Ketones Negative, Urine Occult Blood Negative, Urine Nitrite Negative, Urine Bilirubin Negative, Urine Urobilinogen 1 H, Ur Leukocyte Esterase Negative, Urine RBC 0 SEEN, Urine WBC 0-5 SEEN, Ur Squamous Epith Cells 0 SEEN, Urine Bacteria RARE, Urine Mucus 0 SEEN 04/02/25 22:35: WBC 10.1, RBC 5.04, Hgb 15.8, Hct 46.2, MCV 91.7, MCH 31.3, MCHC 34.2, RDW Std Deviation 42.3, RDW Coeff of Edwin 12.6, Plt Count 270, MPV 10.2, Immature Gran % (Auto) 0.500, Neut % (Auto) 66.4, Lymph % (Auto) 22.6, [place] % (Auto) 8.1, Eos % (Auto) 1.9, Baso % (Auto) 0.5, Absolute Neuts (auto) 6.7, Absolute Lymphs (auto) 2.27, Nucleated RBC % 0, Sodium 137, Potassium 4.1, Chloride 101, Carbon Dioxide 22.9, Anion Gap 13, BUN 23 H, Creatinine 0.98, Estim Creat Clear Calc 144.84, Est GFR (MDRD) Non-Af 114, BUN/Creatinine Ratio 23.6 H, Glucose 96, Calcium 9.5, Total Bilirubin 0.57, AST 20, ALT 12, Alkaline Phosphatase 83, Total Protein 7.6, Albumin 4.5, Globulin 3.1, Albumin/Globulin Ratio 1.4, Lipase 22 Radiography Diagnostic Testing: Radiology Impression Abdomen/Pelvis CT 04/02/25 22:44 IMPRESSION: Findings are consistent with early/mild appendicitis. [place] Location: [place] [address] D/ Instructions Discharge Activity: May Not Drive (for 2-3 days or while taking narcotic pain medications) May shower in (days): 1 Lifting Restrictions: 15 lbs for 2 weeks Additional Activity Instructions: Alternate ibuprofen and Tylenol for pain control, oxycodone for breakthrough pain Call your doctor if your incision/area has: Continuous Slow Oozing, Sudden Increased Bleeding, Increased Pain/ Swelling, Increased Redness and Foul Smelling Discharge Call your doctor if you observe: Fever of 101 or Higher Suture Line Care: Avoid Pulling/Pushing and Avoid Pinching/Bending Remove Dressing in: 2 days Cleanse incision/area with: Soap & Water DC O2, CPAP, BIPAP Needs Home O2 Discharge instructions: No Additional Instructions: Keep dressing clean and dry. Change or remove dressing in 2 days. Leave steri strips for 1 week. May protect with a gauze bandaid. Please Follow Up With: Chris Knutson MD When: Please call to schedule 2 week follow up appointment at [phone] Meaningful Use Info Meaningful Use Meaningful Use Diagnoses (Choose all that apply): None applicable Discharge Plan Admission Admit Date/Time: 04/03/25 00:05 Attending Provider: Chris Knutson Primary Care Provider: Felipe Monroe Discharge Orders/Prescriptions Prescriptions: New oxycodone 5 mg Tablet 5 - 10 mg PO Q4H PRN PRN (Reason: Pain Score 4-10) 5 Days Qty: 14 0RF Referrals / Follow Up: Felipe Monroe MD [Primary Care Provider] - Disposition Disposition (needs filled in before D/C Order can be placed): Home, Self Care
--- NOTE | 2025-04-03 07:13 | PCM.POST.ANE ---
Anesthesia: Postop Eval I Current Vital Signs Temperature: 98 F Pulse Rate: 72 Blood Pressure: 134/75 Respiratory Rate: 16 Pulse Ox: 100 Oxygen Delivery Method: Room Air Assessment Airway patent: Yes Spontaneous unlabored respirations: Yes Mental status: Awake and Calm nausea: No Vomiting: No Anesthesia Complication: No Fluid Hydration Crystalloid volume administer (ml): 700 Total IV fluid infused: 700 Progress Note Anesthesia document: Postop Eval 1 completed: Yes
--- OUTSIDE RECORDS SUMMARY | 2025-04-03 09:59 | XMS RPT_ITS | CCD ---
Author Organization [facility] Care Team Providers Care Conventional Underwriter Name Role Phone Dr. Felipe Cortez Primary Care Provider Dr. Felipe Cortez Referring Provider KEYONNA Wallace Attending Provider [phone] Unavailable Primary Care Provider UnavailFelipe Montano Primary [...] FELIPE CORTEZ MD Primary Care Unavailable LIONEL BRAGG-FRANCE, MERCEDEZ Attending UnavailFELIPE Montano MD Primary Care Unavailable Felipe Cortez MD Primary Care Provider FELIPE CORTEZ Primary Care Unavailable Dr. Felipe Cortez MD Primary Care Provider Dr. Jordan Goel DO Emergency Provider Dr. Chris Knutson MD Admit Provider [phone] Dr. Chris Knutson MD Attending Provider Medications Current Medications Medication Drug Class(es) Dates Sig (Normalized) Sig (Original) 12 hr dextromethorphan hydrobromide 30 mg / guaiFENesin 600 mg extended release oral tablet (1 source) Uncompetitive L-tqtjfm-I-aspartat e Receptor Antagonist, Sigma-1 Agonist Start: 10-12-2024 [...] inhaler, # 1 EA, 1 Refill(s), Pharmacy: [facility], 180.3, cm, 04/30/20 16:03:00 EDT, Height, kg, 04/30/20 16:03:00 EDT, Dosing Weight Start Date: 04/30/20 Stop Date: 06/29/20 Status: Ordered Problems Problem Classification Problem Date Documented Da te Episodic/Chronic Appendicitis and other appendiceal conditions (2 sources) Acute appendicitis; Translations: [Unspecified acute appendicitis] 04-02-2025 Episodic Asthma (1 source) Asthma 03-28-2019 Chronic Fracture of lower limb (2 sources) Nondisplaced fracture of proximal phalanx of right great toe, subsequent encounter for fracture with routine healing; Translations: [Nondisp fx of prox phalanx of r great toe, 7thD] Onset: 05-08-2022 Episodic Open wounds of head; neck; and trunk (4 sources) Facial laceration ; Translations: [Laceration without foreign body of other part of head, initial encounter] Onset: 12-18-2022 12-14-2022 Episodic Other connective tissue disease (2 sources) [...] encounter] Onset: 02-22-2024 Episodic Sprains and strains (4 sources) Sprain of ankle; Translations: [Sprain of unspecified ligament of right ankle, initial encounter] 04-18-2019 Episodic Superficial injury; contusion (11 sources) Contusion of foot; Translations: [Contusion of right foot, initial encounter] Episodic Results Test Name Value Interpretation Reference Range Facility Absolute lymphocyte countOrd ered By: Jordan Goel on 04-02-2025 Lymphocytes Auto (Unsp spec) [#/Vol] 2.27 10*3/uL 0.83-4.51 [facility] Absolute neutrophil countOrd ered By: Jordan Goel on 04-02-2025 Neutrophils (Bld) [#/Vol] 6.7 10*3/uL 2.0-7.7 [facility] Anion gap in Serum or Plasma Ordered By: Jordan Goel on 04-02-2025 Anion gap [Moles/Vol] 13 mmol/L 5-[address] [facility] Automated lymphocyte count a s percentage of total leukocytesOrdered By: Jordan Goel on 04-02-2025 Lymphocytes/100 WBC Auto (Unsp spec) 22.6 % 19-41 [facility] BUN/creatinine ratioOrdered By: Jordan Goel on 04-02-2025 Urea nitrogen/Creatinine [Mass ratio] 23.6 mg/mg High 10-20 [facility] Basophil percentageOrdered B y: Jordan Goel on 04-02-2025 Basophils/100 WBC (Bld) 0.5 % 0-1 [facility] Bilirubin Test strip Ql (U)O rdered By: Jordan Goel on 04-02-2025 Bilirubin Ql (U) Negative Negative [facility] Bilirubin, totalOrdered By: Jordan Goel on 04-02-2025 Bilirubin [Mass/Vol] 0.57 mg/dL 0.00-1.30 [facility] Carbon dioxide, total [Moles /volume] in Central venous bloodOrdered By: Jordan Goel on 04-02-2025 CO2 [Moles/Vol] 22.9 mmol/L 21.0-32.0 [facility] Chloride assayOrdered By: Td Goel on 04-02-2025 Chloride [Moles/Vol] 101 mmol/L 98-108 [facility] Eosinophil percentageOrdered By: Jordan Goel on 04-02-2025 Eosinophils/100 WBC (Bld) 1.9 % 0-5 [facility] Erythrocyte distribution wid th ratioOrdered By: Jordan Goel on 04-02-2025 Erythrocyte distribution width (RBC) [Ratio] 12.6 % 11.6-14.6 [facility] Erythrocyte distribution wid th standard deviationOrdered By: Jordan Parks on 04-02-2025 Erythrocyte distribution width (RBC) [Ratio] 42.3 fl 35.1-43.9 [facility] Glomerular filtration rate ( GFR) estimation/1.73 sq m using serum, plasma, or whole bOrdered By: Jordan Goel on 04-02-2025 GFR/1.73 sq M.predicted among non-blacks MDRD (S/P/Bld) [Vol rate/Area] 114 mL/min/{1.73_m2} >60 [facility] Comment on above: mL/min/1.73m2 CKD-EP I Creatinine Equation (2020) Hematocrit Auto (Bld) [Volum e fraction]Ordered By: Jordan Goel on 04-02-2025 Hematocrit (Bld) [Volume fraction] 46.2 % 40-54 [facility] Hemoglobin measurementOrdere d By: Jordan Goel on 04-02-2025 Hemoglobin (Bld) [Mass/Vol] 15.8 g/dL 13.0-16.5 [facility] Immature granulocytes/100 WB C Auto (Bld)Ordered By: Jordan Goel on 04-02-2025 Immature granulocytes/100 WBC (Bld) 0.500 % 0.0-0.9 [facility] Comment on above: IG% - Immature Granu locytes (promyelocytes, myelocytes and metamyelocytes) > 1% indicates that a LEFT SHIFT is Present. Ketones Test strip Ql (U)Ord ered By: Jordan Goel on 04-02-2025 Ketones Ql (U) Negative Negative [facility] Laboratory - Chemistry and C hemistry - challengeOrdered By: Jordan Goel on 04-02-2025 AST [Catalytic activity/Vol] 20 U/L <38 [facility] Comment on above: Hemolysis present, R esults could be affected. Lipase measurementOrdered By : Jordan Goel on 04-02-2025 Lipase [Catalytic activity/Vol] 22 U/L 13-75 [facility] Comment on above: Please note:LIPASE r evised reference range effective 22. New Lipase methodology. Expected to produce lower values than the previous assay method. NEW Reference Range: 13 - 75 U/L MCV (mean corpuscular volume ) determinationOrdered By: Jordan Goel on 04-02-2025 MCV (RBC) [Entitic vol] 91.7 fL 80-94 [facility] Mean corpuscular hemoglobin (MCH) determinationOrdered By: Jordan Manasa on 04-02-2025 MCH (RBC) [Entitic mass] 31.3 pg 27.0-32.0 [facility] Mean corpuscular hemoglobin concentration (MCHC) determinationOrdered By: Jordan Goel on 04-02-2025 MCHC (RBC) [Mass/Vol] 34.2 g/dL 32-[address] [facility] Mean platelet volume determi nationOrdered By: Jordan Goel on 04-02-2025 Platelet mean volume (Bld) [Entitic vol] 10.2 fL 6.2-12.0 [facility] Microscopic analysis of urin e for red blood cells (RBC)Ordered By: Jordan Goel on 04-02-2025 Microscopic analysis of urine for red blood cells (RBC) 0 SEEN /hpf 0-5 [facility] Monocyte percentageOrdered B y: Jordan Goel on 04-02-2025 Monocytes/100 WBC (Bld) 8.1 % 0-10 [facility] Mucus LM Ql (Urine sed)Order ed By: Jordan Goel on 04-02-2025 Mucus Ql (Urine sed) 0 SEEN /hpf [facility] Neutrophil percentageOrdered By: Jordan Goel on 04-02-2025 Neutrophils/100 WBC (Bld) 66.4 % 47-70 [facility] Nitrite Test strip Ql (U)Ord ered By: Jordan Goel on 04-02-2025 Nitrite Ql (U) Negative Negative [facility] Nucleated red blood cell per centageOrdered By: Jordan Goel on 04-02-2025 Nucleated RBC/100 WBC (Bld) [Ratio] 0 % 0-5 [facility] Platelet countOrdered By: Td Goel on 04-02-2025 Platelets (Bld) [#/Vol] 270 10*3/uL 150-450 [facility] Potassium measurement (mass/ volume)Ordered By: Jordan Goel on 04-02-2025 Potassium (Unsp spec) [Mass/Vol] 4.1 mmol/L 3.3-5.1 [facility] Comment on above: Hemolysis present, R esults could be affected. Protein Test strip Ql (U)Ord ered By: Jordan Goel on 04-02-2025 Protein Ql (U) 15 mg/dl High Negative [facility] RBC Auto (Bld) [#/Vol]Ordere d By: Jordan Goel on 04-02-2025 RBC (Bld) [#/Vol] 5.04 10*6/uL 4.6-6.2 [facility] Serum creatinine measurement (mass/volume)Ordered By: Jordan Goel on 04-02-2025 Creatinine [Mass/Vol] 0.98 mg/dL 0.70-1.[address] [facility] Serum globulin measurementOr dered By: Jordan Goel on 04-02-2025 Globulin (S) [Mass/Vol] 3.1 g/dL 2.2-4.2 [facility] Serum glucose measurement (m ass/volume)Ordered By: Jordan Goel on 04-02-2025 Glucose [Mass/Vol] 96 mg/dL 70-99 [facility] Serum or plasma alanine sims otransferase (ALT) measurementOrdered By: Jordan Goel on 04-02-2025 ALT [Catalytic activity/Vol] 12 U/L <47 [facility] Serum or plasma albumin haresh urement (mass/volume)Ordered By: Jordan Parks on 04-02-2025 Albumin [Mass/Vol] 4.5 g/dL 3.5-5.0 [facility] Serum or plasma albumin/glob ulin mass ratioOrdered By: Jordan Goel on 04-02-2025 Albumin/Globulin [Mass ratio] 1.4 {ratio} 0.9-2.4 [facility] Serum or plasma alkaline tegan sphatase measurementOrdered By: Jordan Goel on 04-02-2025 ALP [Catalytic activity/Vol] 83 U/L 40-129 [facility] Serum or plasma calcium haresh urement (mass/volume)Ordered By: Jordan Parks on 04-02-2025 Calcium [Mass/Vol] 9.5 mg/dL 7.6-11.0 [facility] Serum or plasma urea nitroge n measurement (mass/volume)Ordered By: Jordan Goel on 04-02-2025 Urea nitrogen [Mass/Vol] 23 mg/dL High 4-19 [facility] Sodium levelOrdered By: Orlin Goel on 04-02-2025 Sodium [Moles/Vol] 137 mmol/L 133-145 [facility] Squamous epithelial cells de tection in urine sediment by light microscopyOrdered By: Jordan Goel on 04-02-2025 Epithelial cells.squamous LM Ql (Urine sed) 0 SEEN /hpf 0-5 [facility] Total proteinOrdered By: Warren Goel on 04-02-2025 Protein [Mass/Vol] 7.6 g/dL 5.9-8.4 [facility] Urine clarityOrdered By: Warren Goel on 04-02-2025 Clarity (U) Clear Clear [facility] Urine color determinationOrd ered By: Jordan Goel on 04-02-2025 Color (U) Yellow Yellow [facility] Urine glucose detectionOrder ed By: Jordan Goel on 04-02-2025 Glucose Ql (U) Normal mg/dl Normal [facility] Urine leukocyte esterase det ection by dipstickOrdered By: Jordan Goel on 04-02-2025 Leukocyte esterase Test strip Ql (U) Negative Negative [facility] Urine pHOrdered By: Jordan Soliz on 04-02-2025 pH (U) 6.0 [pH] 5.0 - 8.0 [facility] Urine sediment bacteria coun t by microscopy (number/high power field)Ordered By: Jordan Goel on 04-02-2025 Bacteria LM.HPF (Urine sed) [#/Area] RARE /hpf None Seen [facility] Urine specific gravity measu rementOrdered By: Jordan Goel on 04-02-2025 Specific gravity (U) [Rel density] 1.020 1.002-1.030 [facility] Urine urobilinogen measureme ntOrdered By: Jordan Goel on 04-02-2025 Urobilinogen Ql (U) 1 mg/dl High Normal [facility] White blood cell (WBC) count Ordered By: Jordan Goel on 04-02-2025 WBC (Bld) [#/Vol] 10.1 10*3/uL 4.4-11.0 [facility] White blood cell countOrdere d By: Jordan Goel on 04-02-2025 White blood cell count 0-5 SEEN /hpf 0-5 [facility] FLU A + B ESUCon 10-12-2024 FLU A ESUC Negative Normal NEGATIVE [facility] Comment on above: Performed By: #### U FLUS #### [address] [address] FLU B ESUC Negative Normal NEGATIVE [facility] Comment on above: Performed By: #### U FLUS #### [address] [address] Rapid influenza A/B antigens on 10-12-2024 FLUAV Ag Ql (Unsp spec) Negative NEGATIVE B on [facility] FLUBV Ag Ql (Unsp spec) Negative NEGATIVE B on [facility] Comment on above: Performed at [place] [id number] [facility] ANES POSTPROC EVALon 024 ANES POSTPROC EVAL HNO ID: [id number] Author: CHRISTIANO JOSEPH DO Service: Anesthesiology Author Type: Anesthesiologist Type: Anesthesia Postprocedure Evaluation Filed: 02/22/2024 09:18 Note Text: POST ANESTHESIA EVALUATION NOTE : 2005 Procedure Summary Date: 02/22/24 Room / Location: OR / OR Anesthesia Start: 821 Anesthesia Stop: [...] February 22, 2024 TIME: 9:18 AM CSN: [id number] [facility] ANES PRE-OPon 02-22-2024 ANES PRE-OP HNO ID: [id number] Author: CHRISTIANO JOSEPH DO Service: Anesthesiology Author Type: Anesthesiologist Type: Anesthesia Preprocedure Evaluation Filed: 02/22/2024 08:10 Note Text: ANESTHESIOLOGY DAY OF SURGERY NOTE : 2005 Procedure Information Date/Time: 02/22/24819 Procedure: CLSD TX OF NASAL BONE FX W/DO W/STBLN (Nose) Location: OR 10 / OR Surgeons: Sanjay Wang MD Estimated body mass index is 30.62 kg/m? as calculated from the following: Height as of this encounter: 180.3 cm (5' 11). Weight as of this encounter: 99.6 kg (219 lb 9.3 oz). Most recent hematocrit and potassium results: No results found for this basename: HCT,HEMATOCRIT,K,POT ASSIUM Relevant Problems No relevant active problems I [...] and consent discussed: yes. Patient / Responsible Constitution Party agrees to proceed: yes Patient / Surrogate agrees to blood products: Yes Significant changes in the patient condition since the History and Physical, not otherwise documented in primary service progress note: no. Vitals Value Taken Time BP 134/57 02/22/24 0709 Pulse 74 02/22/24 0706 Resp 18 02/22/24 0706 Temp 36.9 ?C (98.4 ?F) 02/22/24 0706 SpO2 97 % 02/22/24 07 Facility-Administere d Medications as of 02/22/2024 Medication Dose Route [...] February 22, 2024 TIME: 8:10 AM CSN: [id number] [facility] HISTORY PHYSICALon HISTORY PHYSICAL HNO ID: [id number] Author: SANJAY WANG MD Service: Otolaryngology Author [...] DATE: February 22, 2024 TIME: 7:16 AM [facility] OPERATIVE NOon 02-22-2024 OPERATIVE NO HNO ID: [id number] Author: ASNJAY WANG MD Service: Otolaryngology Author Type: Physician Type: Operative Report Filed: 02/22/2024 14:41 Note Text: [facility] - OPERATIVE REPORT NENA WOOD : 2005 AGE: 18. SEX: M PATIENT TYPE: A HOSP SVC: [facility] LOCATION: [place] [address] ATTENDING PHYSICIAN: Sanjay Wang MD CSN NUMBER: [id number] DATE OF SURGERY/PROCEDURE: 02/22/2024 INCISION/PROCEDURE START TIME: 8:34 AM INCISION CLOSE/PROCEDURE END TIME: 8:41 AM PREOPERATIVE DIAGNOSIS: Nasal fracture. POSTOPERATIVE DIAGNOSIS: Nasal fracture. SURGEON: Sanjay Wang MD SAGGER PREPARER: No Additional Staff SURGERY/PROCEDURE: Closed reduction , [...] Less than 2 mL. Sanjay Wang MD CB:[id number] /[id number] Normal [facility] CT MAXILLOFACIAL W/O CONTRAS Ton 02-06-2024 CT [...] 02/06/2024 11:37:48 AM Ordering Provider: NENA MORILLO [facility] ([place]) XR NASAL BONES MINIMUM 3 VIE WSon [...] 02/06/2024 11:01:03 AM Ordering Provider: NENA Dempsey [facility] ([place]) Re-Evaluation - PT (1)on Re-Evaluation - PT (1) [facility] Physical [facility] [address] [place] [address]. [address] [place] [address] / REEVALUATION / MEDICARE RECERTIFICATION PHYSICAL THERAPY MR#: [id number] Acct: [id number] Name: NENA WOOD Rep #: [id number] : 2005 18 From: Hamlet Pimentel PT, ATC Referring Dr.: Dr. Felipe Kelly MD Status:REG RCR Insurance: [facility] SELF PAY INSURANCE Re-Evaluation Intro: Dr. Felipe [...] for reduction of muscular strain after rx. Balance/Gait/Functio nal tests Balance/Special Test Scores Quick DASH Score: [...] training, Flexibilty training, Active ROM and Scapular Strength/Stabilizati on For the Purpose of:: To decrease pain, To increase ROM and To improve muscle performance and motor function Cryotherapy (ice pack, ice massage): Yes For the Purpose of:: To decrease pain Re-Evaluation Ending Re-evaluation ending: Please do not hesitate to contact me at [phone] by phone or if you have questions or concerns regarding this new plan of care! Sincerely, Hamlet Pimentel, PT, ATC 07/08/23 1404 CC: Dr. Felipe Cortez MD; Dr. Felipe Kelly MD [facility] Signed For Medicare only, by signing this I certify the plan of care. Physicians Signature Date Normal [facility] Inital Evaluation (1) - PTon 05-11-2023 Inital Evaluation (1) - PT [facility] [address] [place] [address] [address] [place] [address] / REHABILITATION SERVICES INITIAL EVALUATION MR#: [id number] Acct: [id number] Name: NENA WOOD Rep #: [id number] : 2005 17 From: Hamlet Pimentel PT, ATC Referring Dr.: Dr. Felipe Kelly MD Status: RE G RCR Insurance: [employer] SELF PAY INSURANCE Patient's Visit Information Visit Information Visit Information: NENA WOOD is a 17 year old M referred to Physical Therapy by Dr. Felipe Kelyl MD with a diagnosis of L shoulder [...] training, Flexibilty training, Active ROM and Scapular Strength/Stabilizati on For the Purpose of:: To decrease pain, [...] to be FAXED BACK to us at [phone] for Medicare purposes. For Medicare only, by signing this I certify the plan of care. Please let me know if there are questions or concerns regarding this plan of care. Physician Signature: D ate: 05/11/23 1656 CC: Dr. Felipe Cortez MD; Dr. Felipe Kelly MD [facility] Signed Normal [facility] Emergency Department Summary on 12-15-2022 Emergency Department Summary [facility] Medical Records Department [address] [place] [address] Emergency Department Summary 12/14/22 MR#: [id number] Acct: [id number] Name: NENA WOOD Rep #: [id number] : 2005 17 From: Kalyan Renteria DO [...] secondary to this comes in for evaluation [facility] Home Medications NK 04/18/19 [History Last Taken [...] Neurologic Neurologic: Denies headache(s), paresthesias or weakness Hematologic/Lymphati c Hematologic/Lymphati c: Denies easy bleeding or easy bruising EXAM [...] All Closures (more content not included)... Normal [facility] CR Foot Complete 3+ Views [facility] 05-08-2022 CR Foot Complete 3+ Views Right Patient Name: NENA WOOD Diagnostic Radiology ACCESSION EXAM DATE/TIME PROCEDURE ORDERING PROVIDER [id number] 05/08/2022 14:41 EDT CR Foot Complete 3+ [id number] -KAEHLER, MARIA ELENA Views Right CPT code 03300 Reason For Exam (CR Foot Complete 3+ [...] Transcribed Date and Time: 05/08/2022 11:04 Normal [facility] XR FOOT RIGHT (MIN 3 VIEWS)o n 05-08-2022 Patient Name: NENA WOOD Diagnostic Radiology ACCESSION EXAM DATE/TIME PROCEDURE ORDERING PROVIDER [id number] 05/08/2022 14:41 EDT CR Foot Complete 3+ [id number] -JOSE RLER, MARIA ELENA Views Right CPT code 42903 Reason For Exam (CR Foot Complete 3+ [...] THOMAS Transcribed Date and Time: 05/08/2022 11:04 [facility] Nathanael Flores MD - 05/08/2022 Patient Name: NENA WOOD Diagnostic Radiology ACCESSION EXAM DATE/TIME PROCEDURE ORDERING PROVIDER [id number] 05/08/2022 14:41 EDT CR Foot Complete 3+ [id number] -REID, MARIA ELENA Views Right CPT code 37754 Reason For Exam (CR Foot Complete 3+ [...] THOMAS Transcribed Date and Time: 05/08/2022 11:04 [facility] Work Phone: Radiology Study observation (narrative) [facility] Work Phone: XR FOOT RIGHT (MIN 3 VIEWS)O rdered By: Nathanael Flores on 05-08-2022 [facility] Work Phone: Vital Signs Date Time Vital Sign Value Performing Clinician Faci lity 04-02-2025 23:52-0400 Body temperature 98.3 [degF] Dr. Felipe Cortez MD Work Phone: [facility] 04-02-2025 23:52-0400 Diastolic blood pressure 61 mm[Hg] Dr. Felipe Cortez MD Work Phone: [facility] 04-02-2025 23:52-0400 Heart rate 85 /min Dr. Felipe Cortez MD Work Phone: [facility] 04-02-2025 23:52-0400 Respiratory rate 16 /min Dr. Felipe Cortez MD Work Phone: [facility] 04-02-2025 23:52-0400 SaO2% (BldA) [Mass fraction] 95 % Dr. Felipe Cortez MD Work Phone: [facility] 04-02-2025 23:52-0400 Systolic blood pressure 140 mm[Hg] Dr. Felipe Cortez MD Work Phone: [facility] 04-02-2025 22:01-0400 Body height 180.[address] Felipe Cortez MD Work Phone: [facility] 04-02-2025 22:01-0400 Body mass index (BMI) [Percentile] Per age and sex 94.7 % Dr. Felipe Cortez MD Work Phone: [facility] 04-02-2025 22:01-0400 Body mass index (BMI) [Ratio] 30.2 kg/m2 Dr. Felipe Cortez MD Work Phone: [facility] 04-02-2025 22:01-0400 Body weight 98.[address] Felipe Cortez MD Work Phone: [facility] 10-12-2024 10:45-0500 Body height 180.3 cm Felipe Cortez MD Work Phone: [facility] 10-12-2024 10:45-0500 Body mass index (BMI) [Ratio] 31.38 kg/m2 [facility]ez [facility] 10-12-2024 10:45-0500 Body temperature 98.1 [degF] Felipe Cortez MD [facility] 10-12-2024 10:45-0500 Body weight 102.06 kg Felipe Cortez MD [facility] 10-12-2024 10:45-0500 Diastolic blood pressure 93 mm[Hg] Felipe Cortez MD [facility] 10-12-2024 10:45-0500 Heart rate 96 /min Felipe Cortez MD [facility] 10-12-2024 10:45-0500 Respiratory rate 16 /min Felipe Cortez MD [facility] 10-12-2024 10:45-0500 SaO2% (BldA) [Mass fraction] 98 % Felipe Cortez MD [facility] 10-12-2024 10:45-0500 Systolic blood pressure 142 mm[Hg] Felipe Cortez MD Work Phone: [facility] 02-06-2024 11:58-0400 Diastolic Blood Pressure Non-Invasive 68 mm[Hg] NENA MORILLO MD [facility] 02-06-2024 11:58-0400 Heart rate 64 /min NENA MORILLO MD [facility] 02-06-2024 11:58-0400 Respiratory rate 18 /min NENA MORILLO MD [facility] 02-06-2024 11:58-0400 Systolic Blood Pressure Non-Invasive 116 mm[Hg] NENA MORILLO MD [facility] 02-06-2024 09:49-0400 Blood Pressure Cuff Size NENA MORILLO MD [facility] 02-06-2024 09:49-0400 Blood Pressure Location NENA MORILLO MD [facility] 02-06-2024 09:49-0400 Blood Pressure Method NENA MORILLO MD [facility] 02-06-2024 09:49-0400 Body temperature 98.6 [degF] NENA MORILLO MD [facility] 02-06-2024 09:49-0400 Diastolic Blood Pressure Non-Invasive 60 mm[Hg] NENA MORILLO MD [facility] 02-06-2024 09:49-0400 Heart rate 55 /min NENA MORILLO MD [facility] 02-06-2024 09:49-0400 Respiratory rate 18 /min NENA MORILLO MD [facility] 02-06-2024 09:49-0400 Systolic Blood Pressure Non-Invasive 104 mm[Hg] NENA MORILLO MD [facility] 12-14-2022 21:47-0400 Body height 180.34 cm [facility] 12-14-2022 21:47-0400 Body mass index (BMI) [Percentile] Per age and sex 97.2 % [facility] 12-14-2022 21:47-0400 Body mass index (BMI) [Ratio] 30.5 kg/m2 [facility] 12-14-2022 21:47-0400 Body temperature 98.3 [degF] [facility] 12-14-2022 21:47-0400 Body weight 99.3 kg [facility] 12-14-2022 21:47-0400 Diastolic blood pressure 70 mm[Hg] [facility] 12-14-2022 21:47-0400 Heart rate 90 /min [facility] 12-14-2022 21:47-0400 Respiratory rate 18 /min [facility] 12-14-2022 21:47-0400 SaO2% (BldA) [Mass fraction] 99 % [facility] 12-14-2022 21:47-0400 Systolic blood pressure 135 mm[Hg] [facility] 04-14-2022 16:21-0400 Body temperature 98.7 [degF] Dr. Felipe Cortez Work Phone: [facility] Work Phone: 04-14-2022 16:21-0400 Diastolic blood pressure 66 mm[Hg] Dr. Felipe Cortez Work Phone: [facility] Work Phone: 04-14-2022 16:21-0400 Heart rate 73 /min Dr. Felipe Cortez Work Phone: [facility] Work Phone: 04-14-2022 16:21-0400 Respiratory rate 14 /min Dr. Felipe Cortez Work Phone: [facility] Work Phone: 04-14-2022 16:21-0400 SaO2% (BldA) [Mass fraction] 99 % Dr. Felipe Cortez Work Phone: [facility] Work Phone: 04-14-2022 16:21-0400 Systolic blood pressure 108 mm[Hg] Dr. Felipe Cortez Work Phone: [facility] Work Phone: Encounters Encounter Date Encounter Type Care Provider Facility Start: 04-03-2025 Evaluation and management of inpatient Dr. 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-SECONDARY CONNECTOR ARMATURE Facility:A Start: 02-22-2024 End: 02-22-2024 ambulatory SANJAY WANG Facility:[id number] Start: 02-06-2024 End: 02-06-2024 Emergency department patient visit NENA MORILLO MD [facility] Start: 08-04-2023 End: 08-04-2023 ambulatory Felipe Kelly Facility:[facility] Start: 08-04-2023 End: 08-04-2023 ambulatory [facility] Work Phone: Start: 08-04-2023 End: 08-04-2023 Discharged Recurring [facility] Work Phone: Start: 05-06-2023 End: 05-06-2023 ambulatory BRAULIO [facility] Start: 12-14-2022 End: 12-15-2022 Emergency department patient visit Kalyan Bill Facility:[facility] Start: 12-14-2022 End: 12-14-2022 Emergency department patient visit [facility] Start: 05-08-2022 ambulatory Maria Elena Louis [facility] Start: 05-08-2022 End: 05-08-2022 Subsequent hospital visit by physician Maria Elena NEWBY Work Phone: [facility] Start: 04-14-2022 End: 04-14-[address] Felipe Cortez Work Phone: [facility] Work Phone: Start: 04-14-2022 End: 04-14-[address] Felipe Cortez Work Phone: [facility] Procedures Date Procedure Procedure Detail Performing Clinician Start: 04-02-2025 Computed tomography of abdomen and pelvis with intravenous contrast Dr. Felipe Cortez MD Work Phone: Start: 04-02-[address] Felipe Cortez MD Work Phone: Start: 04-02-2025 Urnls dip stick/tabl et reagent auto microscopy Dr. Felipe Cortez MD Work Phone: Start: 10-12-2024 Iaadiadoo influenza Hol ly A Roth CENTRAL OFFICE REPAIRER SUPERVISOR - SECONDARY CONNECTOR ARMATURE Work Phone: Start: 05-08-2022 Radex foot complete minimum 3 views Maria Elena NEWBY Work Phone: Start: 04-14-2022 X-ray of both feet Dr. Felipe Cortez Work Phone: Start: 11-01-2008 Tube (qualifier value) NENA MORILLO MD Comment on above: in ears Plan of Treatment Date Care Activity Detail Author Start: 01-26-2033 DTaP/Tdap/Td vaccine (8 - Td or Tdap) DTaP/Tdap/Td vaccine (8 - Td or Tdap) [facility] Start: 04-02-2025 Hospital admission, emergency, from emergency room, medical nature [facility] Start: 04-23-2024 COVID-19 Vaccine ( season) COVID-19 Vaccine ( season) [facility] Start: 03-23-2024 Influenza vaccination Flu vaccine (# 1) [facility] Start: 2023 Hepatitis C screening Hepatitis C sc reen [facility] Start: 04-23-2022 Influenza vaccination Flu vaccine (# 1) [facility] Start: 2020 HIV screening HIV screen [facility] Start: 2017 Depression Screen Depression Screen [facility] Start: 2012 DTaP/Tdap/Td vaccine (1 - Tdap) DTaP/Tdap/Td vaccine (1 - Tdap) [facility] Start: 2005 COVID-19 Vaccine (#1) COVID-19 Vacci ne (#1) [facility] Patient Education ED Laceration: All Closures [facility] Work Phone: Patient referral [facility] Work Phone: Immunizations Immunization Date Immunization Notes Care Provider Fa [facility] 01-26-2023 tetanus toxoid, redu abdoul diphtheria toxoid, and acellular pertussis vaccine, adsorbed; Translations: [Boostrix (Tdap)] NENA MORILLO MD [facility] 06-11-2021 Human Papillomavirus 9-valent vaccine; Translations: [Gardasil 9] NENA MORILLO MD [facility] 01-09-2021 Human Papillomavirus 9-valent vaccine; Translations: [Gardasil 9] NENA MORILLO MD [facility] 11-19-2020 Human Papillomavirus 9-valent vaccine; Translations: [Gardasil 9] NENA MORILLO MD [facility] 02-17-2017 diphtheria and tetan us toxoids, adsorbed for pediatric use NENA MORILLO MD [facility] 02-17-2017 meningococcal polysaccharide (groups A, C, Y and W-135) diphtheria toxoid conjugate vaccine (MCV4P) NENA MORILLO MD [facility] 02-17-2017 tetanus and diphther ia toxoids, adsorbed, preservative free, for adult use (5 Lf of tetanus toxoid and 2 Lf of diphtheria toxoid) NENA MORILLO MD [facility] 04-02-2011 diphtheria, tetanus toxoids and acellular pertussis vaccine NENA MORILLO MD [facility] 04-02-2011 measles/mumps/rubell a virus vaccine NENA MORILLO MD [facility] 04-02-2011 poliovirus vaccine, inactivated NENA MORILLO MD [facility] 04-02-2011 varicella virus vaccine WILL SHARON MORILLO MD [facility] 06-27-2007 diphtheria, tetanus toxoids and acellular pertussis vaccine NENA MORILLO MD [facility] 06-27-2007 haemophilus influenz ae type b vaccine, PRP-T conjugate NENA MORILLO MD [facility] 06-27-2007 pneumococcal conjuga te vaccine, 13 valent NENA MORILLO MD [facility] 01-24-2007 measles/mumps/rubell a virus vaccine NENA MORILLO MD [facility] 01-24-2007 pneumococcal conjuga te vaccine, 13 valent NENA MORILLO MD [facility] 01-24-2007 varicella virus vaccine WILL SHARON MORILLO MD [facility] 03-31-2006 poliovirus vaccine, inactivated NENA MORILLO MD [facility] 01-20-2006 pneumococcal conjuga te vaccine, 13 valent NENA MORILLO MD [facility] 2005 diphtheria, tetanus toxoids and acellular pertussis vaccine NENA MORILLO MD [facility] 2005 haemophilus influenz ae type b vaccine, PRP-T conjugate NENA MORILLO MD [facility] 2005 hepatitis B vaccine, unspecified formulation NENA MORILLO MD [place] [id number] poliovirus vaccine, inactivated NENA MORILLO MD [facility] 2005 diphtheria, tetanus toxoids and acellular pertussis vaccine NENA MORILLO MD [facility] 2005 haemophilus influenz ae type b vaccine, PRP-T conjugate NENA MORILLO MD [facility] 2005 hepatitis B vaccine, unspecified formulation NENA MORILLO MD [facility] 2005 pneumococcal conjuga te vaccine, 13 valent NENA MORILLO MD [facility] 2005 poliovirus vaccine, inactivated NENA MORILLO MD [facility] 2005 diphtheria, tetanus toxoids and acellular pertussis vaccine NENA MORILLO MD [facility] 2005 DTaP-hepatitis B and poliovirus vaccine NENA MORILLO MD [facility] 2005 haemophilus influenz ae type b vaccine, PRP-T conjugate NENA MORILLO MD [facility] 2005 hepatitis B vaccine, unspecified formulation NENA MORILLO MD [facility] 2005 poliovirus vaccine, inactivated NENA MORILLO MD [facility] Payers Date Payer Category Payer Self-pay [id number] 2022 [employer] [id number] 2005 Unknown [id number] 2.16. [id number] 2005 Unknown [id number] 2.16.8 [id number] 2005 Unknown [id number] 2.16.8 [id number] 2005 Unknown [id number] 2.16.8 [id number] 2005 Unknown [id number] 2.16. [id number] 1986 Unknown [id number] 2.16. [id number] 1986 Unknown [id number] 2.16. [id number] Unknown [id number] Unknown Unknown [id number] Unknown [id number] 2.16.8 [id number] Unknown [id number] 2.16.8 [id number] Social History Date Type Detail Facility Start: 04-14-2022 End: 12-14-2022 Tobacco smoking status VTIS Unknown if ever smoked [facility] Start: 2005 Sex Assigned At Male [facility] Start: 2005 Sex Assigned At Not on file S VANDOLAY Work Phone: Tobacco Tobacco Use: no tobacco or smoke exposure. [facility] Tobacco smoking status No Smokin g Status Entered [facility] Start: 10-12-2024 End: 04-02-2025 Tobacco smoking status NHIS Never smoked tobacco [facility] Start: 10-12-2024 Tobacco use and exposure User of smokeless tobacco [facility] History of tobacco use Chews Tobacco [facility] Start: 10-12-2024 Alcoholic beverage intake Ex-drinker (finding) [facility] Start: 05-08-2022 History of Social function [facility] Start: 05-08-2022 [facility] Start: 10-12-2024 Alcohol Comment Social [facility] Functional Status Date Assessment Result Facility 02-06-2024 Functional Status Independent [facility] 02-06-2024 Functional Status Ambulation in [place], Ambulation in Room [facility] Mental Status Date Assessment Result Facility 02-06-2024 Mental Status Oriented x 4 [facility] 02-06-2024 Mental Status [facility] Clinical Notes 12-14-2022 to 04-02-2025 Note Date & Type Note Facility 04-02-2025 Discharge summary [facility] 04-02-2025 Radiology Diagnostic study note [facility] Imaging Services [address] [place] [address] Abdomen/Pelvis W IV Cont ONLY MR#: [id number] Acct: [id number] Name: NENA WOOD Rep #: [id number] : 2005 M 19 From: Juana Wade MD PCP: Dr. eFlipe Cortez MD Status: REG ER Study:Abdomen/Pelvis W IV Cont ONLY Date of E xam: 04/02/25 Exam# [id number] Ordering Dr: Jordan Jiménez DO PROCEDURE: ABDOMEN/PELVIS W IV CONT ONLY 04/02/2025 REASON FOR EXAM: RIGHT LOWER QUADRANT ABDOMINAL PAIN TECHNIQUE: ABDOMEN/PELVIS W IV CONT ONLY Coronal and Sagittal reconstruction series were provided. CONTRAST: Isovue 370 VOLUME: 98 mL One or more dose reduction techniques were used (e.g., Automated exposure control, adjustment of the mA and/or kV according to patient size, use of iterative reconstruction technique. RADIATION DOSE SUMMARY: CTDlvol: 25 mGy DLP: 826 mGycm COMPARISON: No FINDINGS: Clear lung bases. Normal heart size. Normal liver, gallbladder, pancreas,, adrenal glands and kidneys. No hydronephrosis. Normal bladder. Normal prostate. No retroperitoneal or pelvic adenopathy. No free air. Nondistended bowel. Theappendix is borderline prominent, 7 mm cross-section. It does appear to be some wall enhancement and some subtle adjacent fat stranding, series 602, image 53. No definite appendicolith. However, likely there is focal cecal apical thickening present. No acute large bowel findings otherwise noted. No acute abdominal wall findings. CT/Abdomen/Pelvis W IV Cont ONLY IMPRESSION: Findings are consistent with early/mild appendicitis. Reading Location: [place] [address] CC: Dr. Jordan Goel DO; Dr. Felipe Cortez MD ~ Complaints Coordinator: Signed [facility] 04-02-2025 Discharge summary Note Date/Time April 02, 2025 11:46pm [facility] Medical Records Department [address] [place] [address] Emergency Department Summary 04/02/25 MR#: [id number] Acct: [id number] Name: NNEA WOOD Rep #:[id number] : 2005 19 From: Jordan barraza DO PCP: Dr. Felipe Cortez MD Status:REG ER Location: ED ADDENDUM by Kalyan Renteria DO on 04/02/25 at 2346 Patient was signed out to me while awaiting results of his CT scan. CT scan revealed mild/early acute early appendicitis. Secondary to this I discussed thecase with general surgeon on-call Dr. Knutson. He will admit the patient to his service with plan for appendectomy tomorrow. Patient was started on Zosyn in the ER secondary to the early infection. 04/02/25 2346<Electronically signed by Kalyan Renteria DO> Cosigner Signature (if applicable): cc: Dr. Felipe Cortez MD ~* Signed HPI History of Present Illness Chief Complaint: Abd Pain Narrative Narrative: Chief complaint and HPI: Right lower quadrant abdominal pain. 19-year-old male with no significant past medical history presents for evaluation of right lower quadrant abdominal pain. Onset this morning. He associates his some diarrhea. He denies any fever, chills, shortness of breath, chest pain, nausea, vomiting, dysuria. Denies any penile or testicular pain or swelling. No concern for STI. States he has been eating and drinking well. Review of systems: See HPI Medications: As listed on the chart Allergies: As listed on the chart PFSH: Per chart Vital signs: As listed on the chart. Reviewed. Physical exam: Gen: A&O x3, NAD Head: Normocephalic, atraumatic Eyes: No sclera icterus, conjunctiva clear ENT: Moist mucous membranes Neck: Trachea midline, No JVD CV: RRR, no murmurs, no peripheral edema Resp: Lungs CTA BL, no w/r/c GI: Abd soft, non-distended, tender to palpation in the right lower quadrant, norebound or rigidity Musc: Full ROM, no deformity Skin: Warm, dry Neuro: Alert, oriented, grossly intact, sensation intact Psych: Cooperative, appropriate mood and affect PFS PFS Home Medications ?Medication ?Instructions ?Recorded ?Last Taken ?Type NK 04/18/19 Unknown History Allergy/AdvReac Type Severity Reaction Status Date / Time No Known Allergies Allergy Verified 04/02/25 22:03 Surgical History History of myringotomy Social History Smoking Status: Never smoker alcohol intake: never EXAM Physical Exam Const Vital Signs: 04/02/25 22:01 Temperature 97.7 F L Temperature Source Oral Pulse Rate 100 Respiratory Rate 18 Blood Pressure 133/72 H Blood Pressure Mean 92 Pulse Ox 98 Oxygen Delivery Method Room Air MDM MDM MDM Narrative Medical decision making narrative: 19-year-old male with no significant past medical history presents for evaluation of right lower quadrant abdominal pain. Differential diagnosis includes but is not limited to appendicitis, gastroenteritis, UTI, suspect less likely biliary or pancreatic pathology. Patient offered pain medicine but declined. Laboratory workup ordered including CT abdomen pelvis. CBC without leukocytosis or anemia. CMP and lipase pending. UA negative for UTI. CT abdomen pelvis pending. Patient signed out to night physician Dr. Renteria. He will wait for the results and CT abdomen pelvis findings. Impression: 1. Right lower quadrant nominal pain. Lab Data Labs: Laboratory Results - last 24 hr 04/02/25 04/02/25 22:28 22:35 WBC 10.1 RBC 5.04 Hgb 15.8 Hct 46.2 MCV 91.7 MCH 31.3 MCHC 34.2 RDW Std Deviation 42.3 RDW Coeff of Edwin 12.6 Plt Count 270 MPV 10.2 Immature Gran % (Auto) 0.500 Neut % (Auto) 66.4 Lymph % (Auto) 22.6 [place] % (Auto) 8.1 Eos % (Auto) 1.9 Baso % (Auto) 0.5 Absolute Neuts (auto) 6.7 Absolute Lymphs (auto) 2.27 Nucleated RBC % 0 Urine Color Yellow Urine Clarity Clear Urine pH 6.0 Ur Specific [place] 1.020 Urine Protein 15 H Urine Glucose (UA) Normal Urine Ketones Negative Urine Occult Blood Negative Urine Nitrite Negative Urine Bilirubin Negative Urine Urobilinogen 1 H Ur Leukocyte Esterase Negative Discharge Plan Triage Chief Complaint: Abd Pain ED Provider: Jordan Goel Dx/Rx/DC Orders Prescriptions: No Action NK Primary Care Provider: Felipe Cortez Referrals: Felipe Cortez MD [Primary Care Provider] - Print Language: Singaporean What to do if you have Problems For any increased pain, shortness of breath, bleeding, nausea or vomiting, chestpain, or any unexpected problems, contact your Primary Care Provider. Call [facility] ([phone]) or report to the closest Emergency Room. Call 911 if necessary. 04/02/25 6293 <Electronically signed by Jordan Goel DO> Cosigner Signature (if applicable): CC: Dr. Felipe Cortez MD ~ Signed [facility] Work Phone: [phone]) 308-371907-02-2024 NoteHNO ID: [id number] Author: WILSON FIORE APRN.COMPANY DOCTOR Service: Anesthesiology Author Type: Nurse Line Welder Type: Anesthesia Procedure Notes Filed: 02/22/2024 08:35 [...] no Airway not difficult SIGNATURE: Wilson Fiore APRN.CRNA PATIENT NAME: Nena Wood DATE: February 22, 2024 TIME: 8:34 AM CSN: [id number] NoteHNO ID: [id number] Author: LEANNE GOMEZ RN Service: Nursing Author Type: Registered Nurse [...] color), Ensure Pre-Surgery (given by MEIR or stan Ba), fruit juice without pulp (apple/cranberry), clear tea, [...] directed. Bring copy of Living Will/Power of Feed And Farm Management Adviser. Do not smoke or chew. If you [...] the Surgery Center. UPON ARRIVAL: Access to [facility] is located on [address] [employer] parking is available for your convenience from [...] updated instructions for the morning of your procedure.[facility]06-28-2024 NoteHNO ID: [id number] Author: SUELLEN SANDERS APRN.SECONDARY CONNECTOR ARMATURE Service: Anesthesiology Author Type: Nurse Practitioner Type: [...] updated instructions for the morning of your procedure.[facility]06-16-2024 Hospital Discharge instructions Patient Education 02/06/2024 11:48:50 Laceration, Nose, with Fracture: Suture or Tape Nose Laceration with Fracture: Suture or Tape You have a cut and broken nose. The cut may bleed. And, your broken nose may cause pain, swelling, and nasal stuffiness. Your nose may bleed or leak a clear fluid. The break may be a minor crack or amajor break with the parts pushed out of [...] This is to help prevent infection. Follow allinstructions for taking this medicine. Take the medicine every day until it is gone or you are toldto stop. You should not have any left [...] replace it. Otherwise, leave it in place forthe first 24 hours, then change it once a day or as directed. oIf stitches were used, clean the wound daily: After removing the bandage, wash the area with soap and water. Use a wet cotton swab to loosen and remove any blood or crust that forms. After cleaning,pat the wound dry. Reapply a fresh bandage. [...] breathe through both nostrils after the swelling goesdown, contact the referral doctor for an appointment [...] or change in behavior or speech Seizure [id number] [employer] [place] [address], [place] [address]. All rights reserved. This information is not intended as a substitute for professional medical care. Always follow youruniversity hospitals health systemcare professional's instructions. 02/06/2024 11:48:38 Laceration, Face: Suture or Tape Face Laceration: Stitches or Tape A laceration is a cut through the skin. This will require stitches if it is deep. Minor cuts may betreated with surgical tape. Home care Your healthcare provider may prescribe an antibiotic. This is to help prevent infection. Follow allinstructions for taking this medicine. Take the medicine every day until it is gone or you are toldto stop. You should not have any left [...] Use a wet cotton swab to loosen andremove any blood or crust that forms. oAfter cleaning, keep the wound clean and dry. Talk with your healthcare provider before putting any antibiotic ointment on the wound. Reapply a fresh bandage. oYou may remove the bandage to shower as usual after the first 24 hours, but don't soak the area inwater (no swimming) until the sutures are removed. [...] Wound changes colors Numbness around the wound [id number] [employer] [place] [address]. All rights reserved. This information is not intended as a substitute for professional medical care. Always follow yourhealthcare professional's instructions. Follow Up Care 02/06/2024 09:47:54 With:VIVIANA RAMIREZ DO [facility] [address] [place] [phone] When:3-5 days With:FELIPE CORTEZ MD Address: [address] [place] [address]- When:2-4 days [facility] 06-16-2024 Note Discharge Instructions Thank you for allowing [facility] to assist you with your healthcare needs. The following is importantdischarge information regarding your hospital visit. What to Do Next Instructions from Your Care Team No qualifying data available. Post Acute Orders No qualifying data available. You Need to Schedule the Following Appointments Follow Up with VIVIANA RAMIREZ DO When:Within 3-5 days Where:[facility] [address] [place] [phone] Follow Up with FELIPE CORTEZ MD When:Within 2-4 days Where:[address] [place] [address]- Allergies NKA Medications Please ask your primary doctor or pharmacist before taking any other medication not listed, including over the counter drugs, herbal medications, vitamins and or supplements as they may interact withyour home medications. What How Much When Instructions Last Dose Unchanged albuterol (albuterol MDI (90 mcg/ inh) CFC freeinhalation aerosol) 2 puff(s) by inhalation Every 4 [...] break may be a minor crack or amajor break with the parts pushed out of [...] This is to help prevent infection. Follow allinstructions for taking this medicine. Take the medicine every day until it is gone or you are toldto stop. You should not have any left [...] replace it. Otherwise, leave it in place forthe first 24 hours, then change it once a day or as directed. oIf stitches were used, clean the wound daily: After removing the bandage, wash the area with soap and water. Use a wet cotton swab to loosen and remove any blood or crust that forms. After cleaning,pat the wound dry. Reapply a fresh bandage. [...] breathe through both nostrils after the swelling goesdown, contact the referral doctor for an appointment [...] or change in behavior or speech Seizure [id number] [employer]. [address] [place] [address], [place] [address]. All rights reserved. This information is not intended as a substitute for professional medical care. Always follow yourhealthcare professional's instructions. Face Laceration: Stitches or Tape A laceration is a cut through the skin. This will require stitches if it is deep. Minor cuts may betreated with surgical tape. Home care Your healthcare provider may prescribe an antibiotic. This is to help prevent infection. Follow allinstructions for taking this medicine. Take the medicine every day until it is gone or you are toldto stop. You should not have any left [...] Use a wet cotton swab to loosen andremove any blood or crust that forms. oAfter cleaning, keep the wound clean and dry. Talk with your healthcare provider before putting any antibiotic ointment on the wound. Reapply a fresh bandage. oYou may remove the bandage to shower as usual after the first 24 hours, but don't soak the area inwater (no swimming) until the sutures are removed. [...] Wound changes colors Numbness around the wound [id number] [employer]. [address] [place] [address]. All rights reserved. This information is not intended as a substitute for professional medical care. Always follow yourhealthcare professional's instructions. Additional Information VACCINATE! IT SAVES LIVES! Members of the community who have not yet received the COVID-19 vaccine and would like to receive it can visit one of [facility] vaccine clinics. There are many vaccine clinic locations within the [facility]. For locations and available times, please visit www.[email or web address].[email or web address]/. It is important to note that some COVID mobile vaccine clinics are held outdoors and may be canceled in rainy or stormy conditions. To learn more about pediatric vaccinations (ages 5-11), we invite you to visit the [facility] webpage. [email or web address]/pages/[email or web address]-Xouyifjdkt-[email or web address] stions.htmlTo learn more about the COVID-19 vaccine, we invite you to visit the CDC website for a list of frequently asked questions. https://www.cdc.gov/coronavirus/2019-ncov/vaccines/faq.html [facility] Patient [facility] Access Instructions: Stay connected with your healthcare team and access your personal medical information anytime with the [facility] Patient Portal. If you would like a full copy of your medical records please contact the [facility] Medical Records Department Wednesday through Wednesday between 8a.m. and 4:30p.m. Please follow the directions below to access the portal: 1.Access the email account you provided upon registration to the [facility].2.Look for an invitation email from [facility].3.Open the email and access the invitation link: Accept Invitation to [facility]4.Fill in the required james to create your account. Sign into [email or web address] with your username and password that you [...] you will allow to register on the [facility] Patient Portal for access to your information. You can also access the [facility] Patient Portal on the [employer]. Simply click on Health Records under [employer] and then click on the [employer] logo. HOW TO SAFELY DISPOSE OF PRESCRIPTION MEDICATIONS Please use one of the following methods to safely dispose of your unused medications. 1.Use a drug disposal kit: the drug disposal pouch allows you to safely discard your old and unuseddrugs. Ask your nurse to give you one when you are discharged.2.Visit a local take-back location: Many local pharmacies and police departments have programs that collect old and unwanted prescriptiondrugs. Call your local pharmacy or go to http://[employer].incrediblue/1X7Yn7h to find one close to you.3.Make use of household items: Use cat litter or old coffee grounds to dispose medications if other options arenot available. Mix your drugs with these household products, seal them in an airtight container andthrow it into the garbage. Call [facility]: [phone] to be sure your drugs can be [...] drowsiness, such as benzodiazepines, also known as benzos,including diazepam and alprazolam, muscle relaxants or sleep aids. Never sell or share prescriptionopioids. This is illegal. Store opioids in a [...] been reviewed and explained to me and I,REAGAN WOOD understand my current condition and have read and understand these discharge instructions. I havereceived a written copy of the plan/instructions. If I have questions, I am aware that I should contact my doctor. 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 The maxillary sinus fileds and the orbits appear intact. Bilateral nasal [...] Sign Date: 02/06/2024 11:37:48 AM Ordering Provider: [facility]06-16-2024 Note ORIGINAL EXAMINATION: THREE XRAY VIEWS OF [...] Sign Date: 02/06/2024 11:01:03 AM Ordering Provider: [facility]04-24-2023 Hospital Discharge instructions Additional Instructions Please return to the ER or see your family doctor in 5 to 7 days for suture removal. If you have any further concerns or concerns that the area is becoming infected please return for repeat evaluationWMari[facility] Work Phone: Evaluation + Plan note No data available for this section [facility] Evaluation note* Diagnosis Onset Date Resolution Status Contusion of right foot including toes acute [facility] Work Phone: Evaluation noteNo assessment information available [facility] Work Phone: Evaluation note* Diagnosis Upper respiratory tract infection, unspecified type- Primary [facility] Diagnosis Onset Date Resolution Status Admit Date Acute appendicitis acute April 03, 2025 12:05am [facility] Work Phone: Hospital Discharge instructions* Attachments The following attachments cannot be sent through Care Everywhere. * URI (Upper Respiratory Infection): Viral (Singaporean) * Antibiotics: General Info (Singaporean) [facility] CenterReason for referral (narrative)No reason for referral information availableWMarietta Osteopathic Clinic Work Phone: Chief Complaint and Reason for Visit Chief Complaint RIGHT GREAT TOE INJU RY/FOOT PAIN EORDER- contusion R great toe Reason for Visit Contusion of right f oot including toes Chief Complaint LAC Chief Complaint CONTUSION OF LEFT SH OULDER. 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 No April 02, 2025 10:25pm Additional Source Comments Goals (unrecognized section and content) Goals may be documented in a n alternate sectionGoals may be documented in an alternate sectionGoals may be documented in an alternate section No data available for this sectionGoals may be documented in an alternate section (unrecognized sect ion and content) No Status Records FoundNo Status Records FoundNo Status Records FoundNo Status Records FoundNo Status Records FoundNo Status Records FoundNo Status Records FoundNo Status Records Found INFORMATION SOURCE (unrecogn ized section and content) DATE CREATED AUTHOR 05/22/2022 [facility] DATE CREATED AUTHOR AUTHOR'S ORGANIZ ATION 05/07/2023 [facility] DATE CREATED AUTHOR AUTHOR'S ORGANIZ ATION 11/04/2023 [facility] DATE CREATED AUTHOR AUTHOR'S ORGANIZ ATION 02/17/2024 [facility] DATE CREATED AUTHOR AUTHOR'S ORGANIZ ATION 02/24/2024 [facility] DATE CREATED AUTHOR AUTHOR'S ORGANIZ ATION 05/07/2024 [facility] DATE CREATED AUTHOR AUTHOR'S ORGANIZ ATION 10/06/2024 [facility] DATE CREATED AUTHOR AUTHOR'S ORGANIZ ATION 10/14/2024 [facility] Care Teams (unrecognized sec tion and content) [...] Dr. Felipe Kelly MD Attending Provider, Referring Waldemar black Active Conventional Underwriter Relationship Specialty Start Date End Date Felipe Cotrez MD [address] [place] [id number] PCP - General Family Medicine 04/17/22 Team Status: Active Member Role/Relationship Status Dates Dr. Felipe Cortez MD Primary Care Provider Active Team Status: Active Member Role/Relationship Status Dates Dr. Felipe Cortez MD Primary Care Provider Active Start: April 03, 2025 Dr. Jordan Goel DO Emergency Provider Activ e Start: April 03, 2025 Dr. Chris Knutson MD Admit Provider Active Start: April 03, 2025 Dr. Chris Knutson MD Attending Provider Active Start: April 03, 2025 Reason for Visit (unrecogniz ed section and [...] BE BASED ON THE PRIMARY CLINICAL RECORDS. [facility] [employer] [facility]. provides no warranty or guarantee of the accuracy or completeness of information in this document.
--- NOTE | 2025-04-03 10:13 | PHA.DC.COU.R ---
Pharmacy [facility] has performed discharge medication counseling for this patient. 1. OXYCODONE 5-10MG PO Q4H PRN PAIN The patient was counseled on the following discharge medications and changes in medications for homegoing review. The Reason for Use, instructions for use, and potential side effects were reviewed for all new medications. The patient's questions regarding all of their medications were answered. The patient was able to verbally demonstrate an understanding of their discharge medications. Medications at Discharge Home Medications oxycodone 5 mg tablet 5 - 10 mg (1 - 2 x 5 mg) PO Q4H PRN PRN Pain Score 4-10 5 days #14 tabs 04/03/25
== END 2025-04-03 13:30 | disposition home or self-care (01) ==
LOC: ED 23:46 → PCU 04-03 05:24
PROVIDERS: Admitting Provider Surgery; Emergency Provider Surgery; PCP Family Medicine; Visit Provider Surgery
PROC: 0DTJ4ZZ Resection of Appendix, Percutaneous Endoscopic Approach (ICD-10-PCS; CPT 44970; principal; 2025-04-03 06:00)
DX: K35.80 Unspecified acute appendicitis (principal); Z87.891 Personal history of nicotine dependence
CPT/HCPCS: 44970; 00840; 74177; 80053; 81001; 83690; 85025; 88304; 96361; 96365; 99283; Q9967; A4216; J2405